=== PATIENT | female | born 1965 | race Caucasian/White ===

== ENCOUNTER → 2020-01-31 09:52 | Outpatient (CLI) | payer OTHER, SELFPAY ==
--- NOTE | ~2020-01-31 | MMUS_ITS ---
EXAMINATION: MM diagnostic lisa BI w phong, US breast RT complete HISTORY: Right axillary swelling, increased TECHNIQUE: ML, MLO and cc 3-D tomosynthesis images of both breasts were performed and synthetic 2-D i mages were generated. Bilateral rotated lateral craniocaudal views. CAD analysis was submitted and in terpreted. High resolution right breast and right axillary breast ultrasound was performed. COMPARISON: 09/28/2017 bilateral diagnostic digital mammography 09/28/2017 limited right breast ultrasound BREAST PARENCHYMAL COMPOSITION: There are scattered areas of fibroglandular density. FINDINGS: MAMMOGRAPHIC FINDINGS: There is asymmetric swelling in the right axillary area with a mix of underlying fibroglandular-like density and fat density. Otherwise no suspicious mass, architectural distortion, malignant calcification, skin thickening or r etraction of either breast is evident. ULTRASOUND: A benign-appearing lymph node of approximately 5 x 9 x 12 mm size is identified in the right axilla. No discrete soft tissue mass is evident otherwise. Upon correlation of the mammographic and sonographic findings, hamartoma containing a mixture of norm al fibroglandular breast tissue and fatty tissue is suspected. IMPRESSION: 1. 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 Given interval increase in size, the lesion may be biopsied and/or considered for surgical excisio n as clinically appropriate BI-RADS Category 2: Benign Reviewed, dictated and finalized at location A. IMPRESSION: 1. No mammographic evidence of malignancy; probable hamartoma of the right axil benjamin area 2. Given interval increase in size, the lesion may be biopsied and/or considere d for surgical excision as clinically appropriate BI-RADS Category 2: Benign
== END ==
PROVIDERS: PCP Internal Medicine; Visit Provider Clinical Nurse Specialist
DX: N63.0 Unspecified lump in unspecified breast (principal)
CPT/HCPCS: 76641; 77062; 77066; G0279

== ENCOUNTER → 2021-03-07 12:35 | Outpatient (CLI) | payer OTHER, SELFPAY ==
--- NOTE | ~2021-03-07 | XR_ITS ---
EXAMINATION: XR knee LT min 4V DATE: 03/07/2021 13:19 INDICATION: Left knee pain. TECHNIQUE: 4 views of left knee with weightbearing were obtained. COMPARISON: Left knee radiograph 12/12/2015 FINDINGS: Bone alignment is normal. No fracture. There is moderate osteoarthritis of lateral compartm ent and mild osteoarthritis of medial and patellofemoral compartments. No knee joint effusion. IMPRESSION: 1. Moderate left knee osteoarthritis. Reviewed, dictated and finalized at location A.
--- NOTE | ~2021-03-07 | MM_ITS ---
EXAMINATION: MM screening lisa BI w phong HISTORY: Screening mammogram TECHNIQUE: Craniocaudal and mediolateral oblique 3-D tomosynthesis images were obtained and synthetic 2-D images were generated. CAD analysis was submitted and interpreted. COMPARISON: 01/31/2020 bilateral diagnostic mammography and complete right breast ultrasound 12/01/2018 bilateral digital screening mammogram BREAST PARENCHYMAL COMPOSITION: FINDINGS: 5.9 mm circumscribed mass in the upper outer quadrant of left breast. Diagnostic left mammo gram is recommended, with ultrasound if required. There is a subtle cluster of linear microcalcifications in the posterior lower outer right breast (cr aniocaudal tomosynthesis images 13-/). Diagnostic right mammogram with magnification views is re commended. . IMPRESSION: 1. Subtle posterior lower outer linear right clustered fine linear microcalcifications; diagnostic ri ght mammogram with magnification views is recommended 2. 5 x 9 mm circumscribed mass in the upper outer left breast; diagnostic left mammogram is recommend ed, with ultrasound if required BI-RADS Category 0: Incomplete: Needs additional imaging evaluation. Reviewed, dictated and finalized at location A. IMPRESSION: 1. Subtle posterior lower outer linear right clustered fine linear microcalcifi cations; diagnostic right mammogram with magnification views is recommended 2. 5 x 9 mm circumscribed mass in the upper outer left breast; diagnostic left mammogram is recommended, with ultrasound if required BI-RADS Category 0: Incomplete: Needs additional imaging evaluation.
--- NOTE | ~2021-03-07 | XR_ITS ---
EXAMINATION: XR knee RT min 4V DATE: 03/07/2021 13:20 INDICATION: Right knee pain. TECHNIQUE: 4 views of right knee with weightbearing were obtained. COMPARISON: None. FINDINGS: Bone alignment is normal. No fracture. There is severe osteoarthritis of lateral compartmen t, mild osteoarthritis of medial compartment, and moderate osteoarthritis of patellofemoral compartme nt. There is a small knee joint effusion. IMPRESSION: 1. Severe right knee osteoarthritis. 2. Small right knee joint effusion. Reviewed, dictated and finalized at location A.
== END ==
PROVIDERS: PCP Internal Medicine; Visit Provider Clinical Nurse Specialist
DX: Z12.31 Encounter for screening mammogram for malignant neoplasm of breast (principal); R92.8 Other abnormal and inconclusive findings on diagnostic imaging of breast; M25.461 Effusion, right knee
CPT/HCPCS: 73564; 77063; 77067

== ENCOUNTER → 2021-03-12 07:42 | Outpatient (CLI) | payer OTHER, SELFPAY ==
--- NOTE | ~2021-03-12 | MMUS_ITS ---
EXAMINATION: MM diagnostic lisa BI w phong, US breast LT limited HISTORY: Follow-up right breast calcifications and left breast mass TECHNIQUE: Additional 3-D tomosynthesis images of the breasts were performed and synthetic 2-D images were generated. CAD analysis was submitted and interpreted. High resolution Limited left breast ultr asound was performed. COMPARISON: Comparison to multiple prior studies sequentially, with oldest reviewed study dated 12/06. BREAST PARENCHYMAL COMPOSITION: Breast composed of scattered areas of fibroglandular density. FINDINGS: MAMMOGRAPHIC FINDINGS: There are subtle calcifications lateral aspect of the left breast which are likely benign. There is a 6 mm mass in the upper outer quadrant of the left breast measuring 6 mm with layering milk of calciu m. ULTRASOUND: Limited left breast ultrasound: At 2:00, 8 cm from the nipple, there is a 7 x 5 x 7 mm oval hypoechoi c mass without significant posterior features or internal vascularity, likely complicated cysts. This corresponds to the mass identified on mammography. IMPRESSION: 1. Probable benign bilateral breast findings. 2. Recommend 6 month follow-up diagnostic bilateral mammogram and left breast ultrasound. BI-RADS category 3, probably benign findings. Reviewed, dictated and finalized at location A. IMPRESSION: 1. Probable benign bilateral breast findings. 2. Recommend 6 month follow-up diagnostic bilateral mammogram and left breast u ltrasound. BI-RADS category 3, probably benign findings.
== END ==
PROVIDERS: PCP Internal Medicine; Visit Provider Clinical Nurse Specialist
DX: N63.21 Unspecified lump in the left breast, upper outer quadrant (principal)
CPT/HCPCS: 76642; 77062; 77066; G0279

== ENCOUNTER 2021-11-25 20:54 | Emergency (ER) | payer OTHER, SELFPAY ==
--- NOTE | ~2021-11-25 | XR_ITS ---
EXAM: XR foot RT min 3V DATE: 11/25/2021 21:34 HISTORY: injury/pain . COMPARISON: None available. FINDINGS: Decreased mineralization. No fracture or dislocation. No lytic or blastic lesion. Joint sp aces are maintained. No erosion or periosteal change. Soft tissues within normal limits. IMPRESSION: No acute osseous finding in the right foot. Reviewed, dictated and finalized at location K.
[2021-11-25 21:12] VITALS: BP 152/68; PULSE 78; RESP 16; TEMP 36.9; O2SAT 100
--- NOTE | 2021-11-25 23:12 | ED.LOWEXIN ---
HPI - Extremity Injury (Lower) General Chief Complaint: Extremity Injury, Lower Stated Complaint: Right great toe injury tripped Time Seen by Provider: 11/25/21 22:40 History of Present Illness HPI Narrative: Patient is a 55-year-old female who presents ER with pain to her right great toe. She tripped on a rug and caught her toe. Has pain with roll stepping on the toe. No numbness or tingling. Bruising noted at the base of the cuticle. Related Data Allergies Allergy/AdvReac Type Severity Reaction Status Date / Time No Known Allergies Allergy Verified 11/25/21 21:15 Review of Systems Musculoskeletal: Musculoskeletal: Reports arthralgias and Reports joint swelling Integumentary/Breasts: Skin/Breast: Denies rash Comments: toe bruising Neurologic: Denies focal weakness and Reports numbness (transient, now resolved) [facility] Past Medical History Medical History (Updated 11/25/21 @ 23:17 by Bala Wiggins MD) Anxiety Depression Elevated BP without diagnosis of hypertension GERD (gastroesophageal reflux disease) Palpitations Family History Family History Mother Family history of osteoporosis Asthma Acute myocardial infarction Social History Social History Smoking status: Never smoker Alcohol intake: current Alcohol use details: rarely Exam Narrative: GENERAL: Well-appearing, well-nourished, and in no acute distress. HEAD: Normocephalic, atraumatic. HEART: Regular rate and rhythm. Normal peripheral pulses. EXTREMITIES: Focused exam of the right foot shows bruising at the cuticle. Tender palpation over the distal phalanx. Flexion extension intact. Sensation intact. Normal dorsalis pedis pulse. SKIN: Warm, dry, no rash. NEURO: Alert and oriented x3. PSYCH: Normal mood and affect. Course Course Emergency Course: Informed of diagnosis. Postop shoe for home. Vital Signs Vital signs: Vital Signs Temperature 98.4 F 11/25/21 21:12 Pulse Rate 78 11/25/21 21:12 Respiratory Rate 16 11/25/21 21:12 Blood Pressure 152/68 H 11/25/21 21:12 Pulse Oximetry 100 11/25/21 21:12 Temperature 98.4 F 11/25/21 21:12 Pulse Rate 78 11/25/21 21:12 Respiratory Rate 16 11/25/21 21:12 Blood Pressure 152/68 H 11/25/21 21:12 Pulse Oximetry 100 11/25/21 21:12 MDM - Extremity Injury (Lower) Imaging Data Radiologist's impression: ITS Impressions Foot X-Ray 11/25/21 21:39 IMPRESSION: No acute osseous finding in the right foot. ADDENDUM: 11/25/21 4521 On review, at the request of Dr. Wiggins, there is a nondisplaced oblique fracture of the proximal aspect of the right distal first phalanx. No definite intra-articular extension. No other fracture detected. Discharge Plan Discharge Clinical Impression: Fracture of great toe Patient Disposition: Home, Self-Care Condition: Stable Instructions: Toe Fracture (ED) Additional Instructions: Return the ER if you suffer new injury, your foot becomes cold/blue, or you have additional concerns. Follow-up with orthopedic surgery. Prescriptions: No Action esomeprazole magnesium [Nexium] 20 mg capsule,delayed release(DR/EC) 20 mg PO DAILY Qty: 90 3RF alprazolam [Xanax] 0.25 mg tablet 0.25 mg PO TID PRN (Reason: anxiety) Qty: 20 0RF atorvastatin 20 mg tablet 20 mg PO HS Qty: 90 3RF Follow-up/Referrals: Mao Rdz MD [Physician] - 1 Week Richie Fam DO [Primary Care Provider] - Stand Alone Forms: Work/School Release IP
[2021-11-25 23:53] VITALS: BP 149/79; PULSE 72; RESP 16; O2SAT 98
== END 2021-11-25 23:52 | disposition home or self-care (01) ==
PROVIDERS: Emergency Provider Emergency Medicine; PCP Internal Medicine
DX: S92.414A Nondisplaced fracture of proximal phalanx of right great toe, initial encounter for closed fracture (principal); F41.9 Anxiety disorder, unspecified; F32.9 Major depressive disorder, single episode, unspecified; W01.0XXA Fall on same level from slipping, tripping and stumbling without subsequent striking against object, initial encounter
CPT/HCPCS: 73630; 99284

== ENCOUNTER → 2022-07-28 09:19 | Outpatient (CLI) | payer OTHER, SELFPAY ==
--- NOTE | ~2022-07-28 | MM_ITS ---
EXAMINATION: MM screening lisa BI w phong HISTORY: Screening mammogram TECHNIQUE: Craniocaudal and mediolateral oblique 3-D tomosynthesis images were obtained and synthetic 2-D images were generated. CAD analysis was submitted and interpreted. COMPARISON: 03/12/2021 diagnostic bilateral mammogram and limited left breast ultrasound 03/07/2021 bilateral screening mammogram BREAST PARENCHYMAL COMPOSITION: There are scattered areas of fibroglandular density. FINDINGS: There are a few stable benign calcifications. There is no evidence of suspicious mass, calc ification, or architectural distortion to suggest malignancy in either breast. There has been no susp icious interval change. IMPRESSION: 1. No mammographic evidence of malignancy. 2. Recommend routine screening mammography in one year. BI-RADS Category 2: Benign finding(s). Reviewed, dictated and finalized at location A. L GRINDER
--- NOTE | ~2022-07-28 | DEXA_ITS ---
Bone Density Report Name: SOPHIA MCINTOSH Age: 56 Sex: Female Ethnicity: White Date of : 1965 Indication: postmenopausal; screening for osteoporosis; height loss; Referring Provider: Bonita Dixon Study: Bone densitometry was performed. Exam Date: July 28, 2022 Accession number: [id number] Bone Density: Region BMD T-score Z-score Classification AP Spine (L1-L4) 0.892 -1.4 -0.3 Osteopenia Femoral Neck (Left) 0.735 -1.0 0.1 Normal Total Hip (Left) 0.820 -1.0 -0.3 Normal Femoral Neck (Right) 0.765 -0.8 0.3 Normal Total Hip (Right) 0.773 -1.4 -0.7 Osteopenia Total Hip Mean 0.797 -1.2 -0.5 Osteopenia World Health Organization criteria for BMD impression classify patients as: Normal (T-score at or above -1.0), Osteopenia (T-score between -1.0 and -2.5), or Osteoporosis (T-score at or below -2.5). 10-year Fracture Risk(1): Major Osteoporotic Fracture 5.6% Hip Fracture 0.3% Reported Risk Factors: [place] (), Neck BMD=0.735, BMI=31.4 (1) FRAX(R) Version 3.08. Fracture probability calculated for an untreated patient. Fracture probability may be lower if the patient has received treatment. Clinical Information Provided by Patient: Has used the following medications: Vitamin D, Calcium Patient maximum height was 63 Menopause Age: 51 Does not regularly consume dairy products Onset of menses at age 16 Number of children 2 Impression: The patient has low bone mass, based on the Total Spine T-score. The patient has an estimated ten-year risk of hip fracture of 0.3% and an estimated ten-year risk of major fracture of 5.6%, based on the WHO FRAX algorithm. Discussion: BONE DENSITY IS LOW AT ONE OR MORE SKELETAL SITES. This patient's lowest T-score is low at one or more skeletal sites. It meets the World Health Organization's (WHO) criteria for ?low bone mass? (T-score between -1.0 and -2.5). The patient's 10-year risk of fracture as calculated by FRAX is less than the threshold where pharmacological therapy is recommended by the National Osteoporosis Foundation (NOF). However, all treatment decisions require clinical judgment and consideration of individual patient factors, including patient preferences, comorbidities, previous drug use, risk factors not captured in the FRAX model (e.g., frailty, falls, vitamin D deficiency, increased bone turnover, interval significant decline in bone density) and possible under or overestimation of fracture risk by FRAX. The patient should follow a healthful lifestyle (good nutrition with adequate calcium and vitamin D, and appropriate weight-bearing exercise). Follow-Up: Consider repeating this study in 2 to 3 years to reassess this patient's status, or sooner if there is some new clinical indication. Reported by: TARIK on 07/28/2022 9:47:00 AM.
== END ==
PROVIDERS: PCP Internal Medicine; Visit Provider Clinical Nurse Specialist
DX: Z12.31 Encounter for screening mammogram for malignant neoplasm of breast (principal); Z78.0 Asymptomatic menopausal state; M85.89 Other specified disorders of bone density and structure, multiple sites
CPT/HCPCS: 77063; 77067; 77080

== ENCOUNTER 2024-03-02 01:31 | Day surgery (SDC) | payer OTHER, SELFPAY ==
[2024-02-04 11:34] VITALS: BMI 25.2
--- NOTE | 2024-02-04 11:42 | PC.NURSE ---
Report to the Outpatient Waiting Room, entrance under the green pavilion located off [facility], at time _130pm_ on date _[phone]_. Planned Procedure Time: _330pm_.? Time changes happen often and if your time is changed the preop area will call you the afternoon before. - You and your visitor will be asked to self-screen and do not enter if you have any COVID symptoms. Please call surgeon if you need to reschedule. - A mask is optional within the hospital at this time. Patients may have clear liquids (water, carbonated beverages, clear teas, apple juice) until 3 hours prior to surgery with a maximum of 20 ounces. - No food from midnight until time of surgery and no smoking Take only the following medications with a SIP of water on the morning of surgery: ___None DO NOT STOP ANY OF YOUR OTHER PRESCRIPTION MEDICATIONS PRIOR TO SURGERY EXCEPT THE FOLLOWING Medications to discontinue per physician ___Patient stopped Wegovy on [phone] Please no make-up, nail kenyan, hairspray, perfume, deodorant, or body powder the day of surgery.? No jewelry (including any body piercings) or valuables the day of surgery, leave them at home.? Please take a shower or bath the night before, or the morning of, surgery with an antibacterial soap.? Wear comfortable, loose fitting clothing.? - Jewelry must be removed prior to entering the operating room.? Rings and piercings that are not removed may be cut off. - The hospital will not accept responsibility for valuables.? - Please leave all valuables, including medications, at home the day of surgery. If you are going home after surgery, a licensed industrial truck driver must drive you home.? - NO public transportation without another adult if you receive anesthesia. - We recommend that an adult stay with you for 24 hours following discharge. - We also recommend that you do not drive, make important decision, drink alcoholic beverages, or take any drugs that were not prescribed by your health care provider for at least 24 hours after your discharge time. Follow any additional instructions given to you from your surgeon. Telephone instructions given to __Neeru___and asked if any additional questions and then verbalized understanding. Patient advised to call surgeon office or pre surgery nurse liaison [phone] if any additional questions.
--- NOTE | 2024-02-24 14:31 | PC.NURSE ---
Report to the Outpatient Waiting Room, entrance under the green pavilion located off [facility], at time _0830_ on date _[phone]_. Planned Procedure Time: _1030_.? Time changes happen often and if your time is changed the preop area will call you the afternoon before. - You and your visitor will be asked to self-screen and do not enter if you have any COVID symptoms. Please call surgeon if you need to reschedule. - A mask is optional within the hospital at this time. Patients may have clear liquids (water, carbonated beverages, clear teas, apple juice) until 3 hours prior to surgery with a maximum of 20 ounces. - No food from midnight until time of surgery and no smoking Take only the following medications with a SIP of water on the morning of surgery: ___None DO NOT STOP ANY OF YOUR OTHER PRESCRIPTION MEDICATIONS PRIOR TO SURGERY EXCEPT THE FOLLOWING Medications to discontinue per physician ____Took last dose of Wegovy 02-18-2024. Plans to not take dose again till after surgery.____ Please no make-up, nail austrian, hairspray, perfume, deodorant, or body powder the day of surgery.? No jewelry (including any body piercings) or valuables the day of surgery, leave them at home.? Please take a shower or bath the night before, or the morning of, surgery with an antibacterial soap.? Wear comfortable, loose fitting clothing.? - Jewelry must be removed prior to entering the operating room.? Rings and piercings that are not removed may be cut off. - The hospital will not accept responsibility for valuables.? - Please leave all valuables, including medications, at home the day of surgery. If you are going home after surgery, a licensed fast food delivery driver must drive you home.? - NO public transportation without another adult if you receive anesthesia. - We recommend that an adult stay with you for 24 hours following discharge. - We also recommend that you do not drive, make important decision, drink alcoholic beverages, or take any drugs that were not prescribed by your health care provider for at least 24 hours after your discharge time. Follow any additional instructions given to you from your surgeon. Telephone instructions given to __Cynthia__and asked if any additional questions and then verbalized understanding. Patient advised to call surgeon office or pre surgery nurse liaison [phone] if any additional questions.
--- NOTE | 2024-03-02 08:47 | P.PNAN_ITS ---
Anes - Initial Pre Proc Eval Procedure: Operation Date: 03/02/24 10:30 Proposed Procedures p Hysteroscopy with Biopsy of Endometrium and/or Polypectomy - Az Field MD Date/Time: 03/02/24 08:47 Surgeon: Az Field MD Pre Op Diagnosis: polyp of cervix Patient Data Age: 58 Gender: F Height: 1.6 m Weight: 64.5 kg Allergies Allergy/AdvReac Type Severity Reaction Status Date / Time No Known Allergies Allergy Verified 03/02/24 10:03 Home Medications Medication Instructions Recorded Confirmed Type conj estrogen-medroxyprogesterone See Rx Instructions .Route DAILY 12/19/22 03/02/24 Rx 0.625 mg-5 mg tablet (Prempro) #8 patches semaglutide (weight loss) 0.25 0.25 mg (0.5 mL) subcut WEEKLY #2 12/29/22 03/02/24 Rx mg/0.5 mL subcutaneous pen mL injector (Wegovy) esomeprazole magnesium 20 mg 20 mg PO DAILY #90 caps 11/13/23 03/02/24 Rx capsule,delayed release (Nexium) atorvastatin 20 mg tablet 20 mg PO HS #90 tabs 02/22/24 03/02/24 Rx Patient hx anesthesia problems: none Family hx anesthesia problems: none Results Review: All pre-operative results and documents have been reviewed as part of the pre- operative evaluation. [facility] Past Medical History Medical History Anxiety Depression Elevated BP without diagnosis of hypertension GERD (gastroesophageal reflux disease) Palpitations Surgical History Surgical History History of breast lift Hx of breast reduction, elective Family History Family History Mother Family history of osteoporosis Asthma Acute myocardial infarction Social History Social History Smoking status: Never smoker Alcohol intake: current Alcohol use details: rarely Do You Feel Safe in your Home?: Yes Lack of Transportation: No Lack of Food: Never True Current Housing: I Have Housing Concerned About Future Housing: No Difficulty Paying Gas/Electric Bills: No Difficulty Paying for Meds: No Currently Unemployed: No Education: Bachelor's Degree Difficulty w/ Childcare or Family Care: No Living arrangements: with family Spiritual care concerns: No Anes - Eval Final PreProcedure Day of Procedure 03/02/24 08:47 Patient weight: normal Heart: regular rate and rhythm Lungs: clear to auscultation Airway: Mallampati scale class II Neurological: alert and oriented Last oral intake: >/= 8 hours ASA classification: II Emergent: no Anesthetic plan: proceed Anesthesia type and monitoring: general and standard monitoring Other findings: Patient held semaglutide for 2 weeks Results Review: All pre-operative results and documents have been reviewed as part of the pre- operative evaluation. Informed Consent: The patient's anesthetic plan and its attendant risks and benefits were discussed with the patient/family/POA. Questions were solicited and answers provided to the satisfaction of the patient/family/POA.
[2024-03-02] MEDS: ACETAMINOPHEN 500 MG TABLET 1000 MG PO (08:55)
[2024-03-02] MEDS: LACTATED RINGERS 1,000 ML 30 ML IV CONT (09:00)
--- NOTE | 2024-03-02 09:59 | PM.IMHP ---
H&P: HPI History of Present Illness Date/Time: 03/02/24 09:59 Chief Complaint: endometrial polyp Narrative: this patient is a 58-year-old female with endometrial polyp. We agreed to perform hysteroscopy with endometrial biopsy and possible polypectomy. The patient understands the details of the procedure. The procedure has been explained in detail. She understands the risks. She understands that injuries may occur that result in hospitalization, more surgery, and severe illness. She understands risk of hemorrhage and infection. She denies any chest pain or shortness of breath. She denies any nausea, vomiting, fever, chills. Review of Systems Review of Systems: All systems reviewed & are unremarkable except as noted in HPI and below Constitutional: Constitutional: Denies chills, Denies fatigue, Denies fever(s) and Denies weakness Eyes: Eyes: Denies blurry vision, Denies change in vision, Denies loss of peripheral vision, Denies loss of vision, Denies other visual disturbances and Denies eye pain ENT: Denies vertigo, Denies dizziness, Denies hearing loss, Denies mouth pain, Denies nasal obstruction, Denies neck mass and Denies neck pain Cardiovascular: Cardiovascular: Denies chest pain, Denies diaphoresis, Denies syncope, Denies leg edema and Denies dyspnea Respiratory: Respiratory: Denies chest congestion, Denies cough, Denies hemoptysis, Denies dyspnea and Denies wheezing Gastrointestinal: Gastrointestinal: Denies abdominal pain, Denies constipation, Denies diarrhea, Denies nausea and Denies vomiting Genitourinary: Genitourinary: Denies hematuria, Denies change in libido, Denies nocturia, Denies genital lesions, Denies flank pain and Denies urinary urgency Musculoskeletal: Musculoskeletal: Denies abnormal gait, Denies back pain, Denies myalgias, Denies arthralgias, Denies joint swelling, Denies muscle weakness and Denies neck pain Integumentary/Breasts: Skin/Breast: Denies swelling, Denies breast pain, Denies breast mass, Denies dry skin, Denies nipple discharge, Denies unusual bruising and Denies jaundice Neurologic: Denies Neuro-related abnormal movements, Denies Abnormal speech present, Denies abnormal gait, Denies behavioral changes, Denies confusion, Denies vertigo, Denies dizziness, Denies syncope, Denies loss of vision, Denies memory loss, Denies convulsions and Denies weakness Psychiatric: Psychiatric: Denies abnormal sleep pattern, Denies behavioral changes, Denies change in libido, Denies confusion, Denies depression, Denies anhedonia and Denies memory loss Endocrine: Endocrine: Reports no additional endocrine complaints, Denies change in libido and Denies fatigue Hematologic/Lymphatic: Hematologic/Lymphatic: Reports no additional hematologic/lymphatic complaints Allergic/Immunologic: Allergic/Immunologic: Reports no additional allergic/immunologic complaints and Denies wheezing PMF Past Medical History Medical History Anxiety Depression Elevated BP without diagnosis of hypertension GERD (gastroesophageal reflux disease) Palpitations Surgical History Surgical History History of breast lift Hx of breast reduction, elective Family History Family History Mother Family history of osteoporosis Asthma Acute myocardial infarction Social History Social History Smoking status: Never smoker Alcohol intake: current Alcohol use details: rarely Do You Feel Safe in your Home?: Yes Lack of Transportation: No Lack of Food: Never True Current Housing: I Have Housing Concerned About Future Housing: No Difficulty Paying Gas/Electric Bills: No Difficulty Paying for Meds: No Currently Unemployed: No Education: Bachelor's Degree Difficulty w/ Childcare
--- NOTE | 2024-03-02 10:12 | WPDHPUPDATE1 ---
History and Physical Update Update Date/Time: 03/02/24 10:12 History and Physical has been reviewed, including an updated exam of the patient. There are NO changes in the patient's condition. Risks, benefits, and alternatives have been discussed and questions answered. Patient agrees to proceed with procedure.
[2024-03-02 10:15] VITALS: BP 129/88; BP 136/63; PULSE 65; PULSE 67; RESP 18; TEMP 36.3; O2SAT 98
[2024-03-02 10:45] VITALS: BP 104/48; PULSE 62; RESP 12; O2SAT 96
--- NOTE | 2024-03-02 10:54 | P.OP_ITS ---
Procedure Note - Detailed Date of Procedure 03/02/24 Pre-op Diagnosis polyp of cervix Post-op Diagnosis Same Procedure Performed Hysteroscopy D&C, with polypectomy Surgeon Az Field MD Anesthesia MAC Indications abnormal uterine bleeding Findings Endometrial polyp at the fundus of the uterus. It was midline. The vulva, vagina, cervix all appear normal. Description of Procedure the patient was taken the operating room. She was prepped and draped in the dorsal lithotomy position after induction of mac anesthesia. A speculum was placed in the vagina. The cervix was grasped with a tenaculum. The cervix was dilated about 1 cm. The hysteroscope was inserted. The intrauterine cavity and endocervix were evaluated. rotational blade was inserted through the hysteroscope and the polyp was resected. Hysteroscope was withdrawn. A medium- size curette was used to curettage all the surfaces were within the endometrial cavity. the sample was collected on Telfa and sent to pathology. The hyst eroscope was reinserted and the above findings were noted. Patient tolerated the procedure well. The speculum and tenaculum were removed. She was taken recovery room in stable condition. Sponge lap and needle counts were correct x2. Estimated Blood Loss 40 Drains No Packing No Pathology Yes Complications No immediate complications Condition Stable Disposition PACU
[2024-03-02 11:15] VITALS: BP 129/88; PULSE 67
[2024-03-02] MEDS: oxyCODONE HCL (*CRX) 5 MG TAB IR PO (11:41)
[2024-03-02 11:45] VITALS: BP 130/59; PULSE 56
== END 2024-03-02 11:55 | disposition home or self-care (01) ==
PROVIDERS: PCP Internal Medicine; Visit Provider Obstetrics & Gynecology
PROC: 0U5B8ZZ Destruction of Endometrium, Via Natural or Artificial Opening Endoscopic (ICD-10-PCS; CPT 58563; principal; 2024-03-02 10:30)
DX: N84.0 Polyp of corpus uteri (principal); F41.9 Anxiety disorder, unspecified; F32.A Depression, unspecified; K21.9 Gastro-esophageal reflux disease without esophagitis; R03.0 Elevated blood-pressure reading, without diagnosis of hypertension; Z79.85 Long-term (current) use of injectable non-insulin antidiabetic drugs; Z98.890 Other specified postprocedural states; Z82.49 Family history of ischemic heart disease and other diseases of the circulatory system
CPT/HCPCS: 58558; 88305; A9270; J1100; J1885; J2250; J2405; J2704; J3010; J7120

== ENCOUNTER 2025-02-04 12:16 | Emergency (ER) | payer OTHER, SELFPAY ==
[2025-02-04] VITALS (11 sets, daily range): BP systolic 107–156; BP diastolic 56–129; PULSE 72–110; RESP 20–36; TEMP 36.4; O2SAT 97–100
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
--- OUTSIDE RECORDS SUMMARY | 2025-02-04 12:41 | XMS_ITS | Continuity of Care Document ---
Author Name [facility] Organization [facility] Care Team Providers Care Telephone Answering Service Operator Name Role Phone [facility] Unavailable Unavailable Problems Combined list of problems from Department of Defense and Veterans Affairs facilities. It does not include entries that were removed or entered in error. Problem Status Onset Date Problem Type Date of Resolution Comments Source visit for: issue repeat prescription Active Condition DoD CLASSIC MIGRAINE (WITH AURA) Active Condition DoD BACTERIAL VAGINOSIS Inactive Condition DoD TENDONITIS PATELLAR Active Condition [facility] URETERAL STONE Active Condition strai n all urineforce fluids DoD visit for: administrative purpose Inactive Condition discussed labs are clear, call back if no improvment in sx. [facility] PYELONEPHRITIS ACUTE BACTERIAL RIGHT Active Condition UA in clinic ne g except for blood (patient is menstrating), but she has all the clinical signs and symptoms. She has been treated in the past with sulfa drugs. Will use flouroquinolone this time and pyridium for symptoms. [facility] DEPRESSION Active Condition DoD SINUSITIS ACUTE Inactive Condition Susp ect sinus infection with allergic rhinitis as the cause of her LOPEZ as well as her generalized aches and fatigue. Will place the pt on a two week course of augmentin (paper script given) as well as start samreen-d (paper script given). Advised the pt [facility] urinary frequency ___ times during the night Active Condition suspect Interstitial Cystitis. Rechecking UA and U cx. Checking GC/chlamydia. No baths. If no improvement and negative tests, will refer to Urology for cystoscopy. [facility] UPPER RESPIRATORY INFECTION Inactive Condition Patient with likely viral URI. Will give paper Rx's for symptomatic relief to include Entex PSE, tessalon pearles, and T#3. Advised patient on proper uses of medications and to avoid driving with T3's. [facility] CHRONIC MAJOR DEPRESSION Active Condition DoD Diagnosis: ICD-10-CM Z02.89 Encounter for other administrative examinations Active Diagnosis [facility] Diagnosis: ICD-10-CM Z23 Encounter for immunization Active Diagnosis [facility] Diagnosis: ICD-10-CM Z77.29 Contact with and exposure to other hazardous substances Active Diagnosis [facility] Medications Combined list of outpatient medications from Department of Defense and Veterans Affairs facilities.Medications provided include 1) outpatient medications from the last 15 months, and 2) patient-reported medications. Medication Details Route Status Patient Instructions Prescription Expires Prescription Number Last Dispense Date Ordering Provider Order Date Order Qty Source COMBIPATCH (ESTRADIOL/ NORETHINDRO NE ACET), .05-.14, PATCH TDSW, TRANSDERM, NOVEN THERAPEUT, 8 ea. BOX Active [id number] 4 2023 24 Pharmac y Data Transac tion Service Facilit y COMBIPATCH (ESTRADIOL/ NORETHINDRO NE ACET), .05-., PATCH TDSW, TRANSDERM, NOVEN THERAPEUT, 8 ea. BOX Active [id number] 4 2023 24 Pharmac y Data Transac tion Service Facilit y COMBIPATCH (ESTRADIOL/ NORETHINDRO NE ACET), .05-., PATCH TDSW, TRANSDERM, NOVEN THERAPEUT, 8 ea. BOX Cancele d [id number] : 2023 0 Pharmac y Data Transac tion Service Facilit y ESOMEPRAZOL E MAGNESIUM (esomeprazo le magnesium), 20 MG, CAPSULE JESI BERNABE, [facility], 30 ea. BOTTLE Active [id number] 4 2023 90 Pharmac y Data Transac tion Service Facilit y Allergies, Adverse Reactions, Alerts Combined list of allergies from Department of Defense and Veterans Affairs facilities. It does not include entries that were removed or entered in error. Substance Category Reaction Severity Reaction type Status Date Reported Comments Source No Known Allergies Drug allergy (disorder) active 10/07/2007 [facility] Melo BAEZA ([facility]) Immunizations Combined list of available immunizations from the Department of Defense and Veterans Affairs facilities. Immunization Series Date Given Administered By Site Reaction Lot Number CVX Code Drug Camp Counselor Status Comments Source INFLUENZA, SPLIT VIRUS, TRIVALENT, PF 2023 KAYLA KLEIN LEFT DELTO ID [id number] 140 complet ed [facility] INFLUENZA, INJECTABLE, QUADRIVALENT, PRESERVATIVE FREE 2022 RICHARD TEIXEIRA RIGHT DELTO ID [id number] 150 complet ed Completed Series, [facility] INFLUENZA, INJECTABLE, QUADRIVALENT, PRESERVATIVE FREE 2021 150 complet ed [facility]FLU[facility]ZA, INJECTABLE, QUADRIVALENT, PRESERVATIVE FREE 2020 150 complet ed [facility] INFLUENZA, INJECTABLE, QUADRIVALENT, PRESERVATIVE FREE 2019 150 complet ed [facility] INFLUENZA, INJECTABLE, QUADRIVALENT, PRESERVATIVE FREE 2018 150 complet ed [facility] INFLUENZA, INJECTABLE, QUADRIVALENT, PRESERVATIVE FREE 2018 150 complet ed [facility] influenza virus vaccine, whole virus 1 2002 Unknown, Provider [id number] [employer] complet ed influenza virus vaccine, whole virus DoD Encounters Combined list of: 1) Encounters from Department of Veterans Affairs facilities going backup to the last 18 months, not all [place] inpatient encounters are included; 2) Encounters from the Department of Defense facilities going backup to 280 months. Location Location Details Encounter Type Encounter Number Reason For Visit Attending Provider ADM Date DC Date Status Disposition Source [address] [place] [address] Melo BAEZA [facility]) TELE CONSULT [id number] med refGOPAL Ruvalcaba 01/[address] [place] [address] Melo [facility]AE[facility] [address] [place] [address] Melo [facility]AE[facility] OUTPATIENT [id number] cold>1 week FRANCY MATA 02/27 Released w/o Limitations [address] [place] [address] Melo BAEZA [facility] [address] [place] [address] Melo BAEZA [facility] OUTPATIENT [id number] bladder problem --went to urgent care and it is not uti ADRIANNE MILLER 09/26 Released w/o Limitations [address] [place] [address] Melo BAEZA [facility] Tm Blue) [address] [place] [address] Melo BAEZA ([facility])(Sco tt [facility] Tm Blue) OUTPATIENT [id number] FLU LIKE SYMTOMS RACHEAL NEEL Conner 03/24 Released w/o Limitations [address] [place] [address] Melo BAEZA ([facility])(S [facility] FAM[facility] Tm Blue) [address] [place] [address] Melo BAEZA ([facility])(Sco tt [facility] Tm Blue) OUTPATIENT [id number] BACK PAIN R/O KIDNEY INF [id number] ANTWON BROWN 10/20 Released w/o Limitations [address] [place] [address] Melo BAEZA ([facility])(S [facility] FAMRES Tm Blue) [address] [place] [address] Melo BAEZA ([facility])(Sco tt [facility] Fam Res Tm Green) TELE CONSULT [id number] lab ANTWON BROWN 10/[address] [place] [address] Melo BAEZA ([facility])(S [facility] Fam Res Tm Green) [facility]( Family Medicine 0333) OUTPATIENT [id number] uti IRENE PERSON 12/07 Released w/o Limitations [facility]( [facility] Family Medicin e 0333) [facility]( [facility] 0333) OUTPATIENT [id number] left knee pain TOMMY ZAMORA 04/16 Released w/o Limitations [facility]( [facility] Family Medicin e 0333) [facility]( [facility] 0333) OUTPATIENT [id number] med refill TOMMY ZAMORA 06/14 Released w/o Limitations [facility]( [facility] Family Medicin e 0333) [facility]( Family [facility] 0333) OUTPATIENT [id number] poss cyst on labia/d ischarg e IRENE PEROSN 10/04 Released w/o Limitations [facility]( [facility] Family Medicin e 0333) [facility]( Family Medicine 0333) OUTPATIENT [id number] h/a TOMMY ZAMORA 01/27 Released w/o Limitations [facility]( [facility] Family Medicin e 0333) [facility]( Family Medicine 0333) TELE CONSULT [id number] TOMMY Lorenz 09/06 [facility]( [facility] Family Medicin e 0333) [facility] OFFICE O/P EST LOW 20 MIN [id number] Diagnos is: ICD-10- CM Z77.29 Contact with and exposur e to other hazardo us substan niecy SHEEBA BARRAZA T 01/27 [facility] IMMUNIZATI ON ADMIN [id number] Diagnos is: ICD-10- CM Z23 Encount er for immuniz reshma KLEINKAYLA Hernandez 03/14 [facility] SPECIAL REPORTS OR FORMS 77636-1.82 [id number] Diagnos is: ICD-10- CM Z02.89 Encount er for other adminis trative examCLAUDETTE Fox 09/29 [facility] Procedures Combined list of: 1) Procedures from Department of Veterans Affairs facilities going back up to thelast 18 months, not all VA non-surgical procedures are included; 2) All procedures from the Department of Defense facilities. Procedure Procedure Type Code Date Perfomer Comments Anthony goldstein Urinalysis By Dip Stick With Microscopy Urinalysis By Dip Stick With Microscopy [id number] 10/20/2006 ANTWON BROWN DoD Social History Combined list of available smoking, tobacco, and other social history from Department of Defense and Veterans Affairs facilities. Social History Type Response Date Comment Anthony goldstein This section is an empty social history section. DoD
--- OUTSIDE RECORDS SUMMARY | 2025-02-04 12:42 | XMS_ITS | Clinical Summary ---
Author Organization [facility] [address] [facility] Address [address] [place] [address] Care Team Providers Care Glue Reel Operator Name Role Phone Richie Fam DO Primary Care Provider [phone] Allergies No known active allergies Medications sertraline (ZOLOFT) 50 mg tablet Take 0.5 tablets by mouth daily. 8 Active mv,Ca,min-FA-h erbal comp #223 400 mcg tablet Take 1 tablet by mouth daily. Active PREMPRO 0.625-5 mg per tablet 9 Active atorvastatin (LIPITOR) 20 mg tabletIndicati ons:Hyperlipid emia LDL goal <130 TAKE 1 TABLET DAILY 90 tablet [address] (NexIUM) 20 mg capsule Take by mouth daily 0 Active omeprazole (PriLOSEC) 40 mg capsule omeprazole 40 mg capsule,delayed release Active triamcinolone (KENALOG) 0.1 % cream triamcinolone acetonide 0.1 % topical cream Active Active Problems Problem Noted Date Diagnosed Date Nonrheumatic aortic valve stenosis 06/10/2018 Abnormal stress test 04/29/2018 Palpitations 04/29/2018 SOB (shortness of breath) 04/29/2018 Chest heaviness 04/29/2018 Hyperlipidemia LDL goal <130 04/29/2018 Anxiety 04/29/2018 Systolic murmur 04/29/2018 Medical History Medical History Date Comments Osteoarthritis History of stomach ulcers Gastric reflux Family History Medical History Relation Name Comments Lung cancer Father Lung cancer Maternal Grandfather Colon cancer Mother's Sister Colon cancer Paternal Grandfather Breast cancer Paternal Grandmother Alcohol abuse Neg Hx Arthritis Neg Hx Lung disease Neg Hx Relation Name Status Comments Father (Age 81) Maternal Grandfather Mother Alive Mother's Sister Paternal Grandfather Paternal Grandmother Sister Alive Social History Tobacco Use Types Packs/Day Years Used Date Smoking Tobacco: Never Smokeless Tobacco: Never Alcohol Use Standard Drinks/Week Comments Yes 2 (1 standard drink = 0.6 oz pur e alcohol) monthly Personal Safety Answer Date Recorded Getting School Help Needed Not on file 08/29 Comments Unknown Sex and Gender Information Value Date Recorded Sex Assigned at Not on file Legal Sex Female 12:45 PM CDT Gender Identity Not on file Sexual Orientation Not on file Obstetrics History Last Filed Vital Signs Vital Sign Reading Time Taken Comments Blood Pressure 118/68 02/17/2019 9:47 AM CDT Pulse 74 02/17/2019 9:47 AM CDT Temperature 36.7 C (98.1 F) 07/21/2014 10:57 AM SLAB WORKER Respiratory Rate - - Oxygen Saturation 96% 02/17/2019 9:47 AM CDT Inhaled Oxygen Concentration - - Weight 78.5 kg (173 lb) 04/19/2020 1:11 PM SLAB WORKER Height 160 cm (5' 3) 04/19/2020 1:11 PM SLAB WORKER Body Mass Index 30.65 04/19/2020 1:11 PM SLAB WORKER Plan of Treatment Not on file Insurance [facility] CLAIMS [employer] CLAIM[employer] Care Teams Glue Reel Operator Relationship Specialty Start Date End Date Richie Fam DO PCP - General Internal Medicine 04/07/17
[2025-02-04] MEDS: SODIUM CHLORIDE 0.9% IV 1,000 ML 999 ML IV CONT (13:13)
[2025-02-04] MEDS: HYDROmorphone HCL INJ (*CRX) 1 MG/ML SYR 0.5 MG IV PUSH ×2 (13:14→13:56)
[2025-02-04] MEDS: ONDANSETRON INJ 4 MG/2 ML VIAL IV PUSH ×2 (13:14→14:19)
--- NOTE | 2025-02-04 13:18 | PC.NURSE ---
Pt to CT at this hour.
[2025-02-04 13:19] LABS: Hematocrit 36.8 % (37.0-47.0); Hemoglobin 12.2 g/dL (12.0-15.0); Immature Granulocyte Percent A 0.7 % (0-0.5); Lymphocytes Absolute Auto 1.31 K/mm3 (0.9-3.2); Mean Corpuscular HGB Conc 33.2 g/dl (32-36); Mean Corpuscular Hemoglobin 30.9 pg (26-34); Mean Corpuscular Volume 93.2 fl (80-100); Nucleated Red Blood Cells Absolute Auto 0.000 K/mm3 (0.0-0.012); Nucleated Red Blood Cells Perc 0.0 % (0.0-0.2); Platelet Count Result 395 k/mm3 (150-375); Red Blood Count 3.95 M/mm3 (4.2-5.4); White Blood Count 10.0 K/mm3 (4.5-10.0)
[2025-02-04 13:29] LABS: Alanine Aminotransferase 26 U/L (6-35); Albumin Level 4.3 g/dL (3.5-5.1); Alkaline Phosphatase 70 U/L (38-126); Anion Gap 10 mmol/L (4-12); Aspartate Amino Transferase 39 U/L (14-36); Bilirubin,Total 1.6 mg/dL (0.2-1.3); Blood Urea Nitrogen 19 mg/dL (7-17); Calcium 9.5 mg/dL (8.4-10.2); Carbon Dioxide 25 mmol/L (22-30); Chloride 100 mmol/L (98-107); Estimated CRCL calculation 62 ml/min; Estimated Glomerular Filt Rate > 60; Glucose 159 mg/dL (65-110); Lipase 106 U/L (23-300); Potassium 3.5 mmol/L (3.4-5.0); Sodium 135 mmol/L (137-145); Total Protein 7.1 g/dL (6.3-8.2)
[2025-02-04 13:31] LABS: INR 1.0; Partial Thromboplastin Time 26.5 Seconds (22.3-36.8); Prothrombin Time 12.7 Seconds (11.1-14.7)
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
[2025-02-04] MEDS: PIPERACILLIN/TAZOBACTAM SOD 3.375 GM in SODIUM CHLORIDE 0.9% IV 50 ML 100 ML IVPB (14:01)
[2025-02-04] MEDS: HYDROmorphone HCL INJ (*CRX) 1 MG/ML SYR (14:18)
[2025-02-06 01:18] LABS: Estimated CRCL calculation 59 ml/min; Estimated Glomerular Filt Rate > 60
== END 2025-02-04 14:52 | disposition short-term general hospital (02) ==
PROVIDERS: Emergency Provider Emergency Medicine; PCP Internal Medicine
DX: S36.439A Laceration of unspecified part of small intestine, initial encounter (principal); S36.899A Unspecified injury of other intra-abdominal organs, initial encounter; K21.9 Gastro-esophageal reflux disease without esophagitis; F41.9 Anxiety disorder, unspecified; F32.A Depression, unspecified; V49.9XXA Car occupant (driver) (passenger) injured in unspecified traffic accident, initial encounter
CPT/HCPCS: 36415; 71260; 74177; 80053; 83690; 85025; 85610; 85730; 96361; 96365; 96375; 96376; 99285; J1171; J2405; J2543; J7030; Q9967

== ENCOUNTER 2025-03-09 15:46 | Outpatient (CLI) | payer OTHER, SELFPAY ==
--- NOTE | ~2025-03-09 | CT_ITS ---
EXAMINATION: CT brain wo greg, 03/09/2025 16:20 CDT HISTORY: R42 - Dizziness and giddiness COMPARISON: No comparisons available. Technique: Axial images obtained of the brain without contrast. One or more of the following dose reduction techniques were used: automated exposure control, adjustment of the mA and/or kV according to patient size, use of iterative reconstruction technique. Findings: No acute infarct or parenchymal hemorrhage. No abnormal mass or mass effect. No midline shift. No extra-axial fluid collections. No hydrocephalus. Mastoid air cells unremarkable. Sinuses and orbits unremarkable. No acute fracture. No significant facial or scalp soft tissue swelling evident. No radiopaque foreign body is seen. Impression: 1.No acute intracranial abnormality. Reviewed, dictated and finalized at location P. Impression: 1.No acute intracranial abnormality.
--- NOTE | ~2025-03-09 | CT_ITS ---
Neeru Rizo EXAMINATION: CT abdomen pelvis w con COMPARISON: None HISTORY: R10.9 - Unspecified abdominal pain TECHNIQUE: Axial images were obtained through the abdomen, pelvis post administration of IV contrast. Oral contrast was also administered. Coronal reconstruction images were obtained from the axial views. CT scan performed using dose optimization techniques including the following automated exposure control; adjustment of mA and/or kV; use of iterative reconstruction technique. Automatic exposure control was used to reduce radiation dose. Permanent radiation dose record is archived to PACS. FINDINGS: CT abdomen: LUNG BASES: The lung bases are clear. The visualized portions of the heart and pericardium are unremarkable. LIVER: Mild hepatic steatosis. The portal vein is patent. No intrahepatic biliary duct dilatation. SPLEEN: The spleen is not clearly identified.. KIDNEYS: Right Kidney: Right kidney 2 mm renal calculi, no hydronephrosis, midpole simple cyst 1 x 1 cm. Left Kidney: Left kidney renal calculi the largest mid pole 3 x 4 mm, no hydronephrosis, superior pole simple cyst 2 x 2 cm. ADRENAL GLANDS: Unremarkable. PANCREAS: Unremarkable. GALLBLADDER/BILIARY: Nonspecific mild hyperemia of the gallbladder mucosa. STOMACH AND ESOPHAGUS: Visualized stomach and esophagus within normal limits. BOWEL/MESENTERY: Moderate fecal content. No colitis or diverticulitis. Appendix not identified. No stranding within the mesentery. No thickening or dilated loops of small bowel. ADENOPATHY/RETROPERITONEUM: No lymphadenopathy. AORTA/VASCULATURE: Normal caliber aorta. FREE FLUID OR FREE AIR: No free fluid.. CT pelvis: SOLID ORGANS/REPRODUCTIVE: Unremarkable. BLADDER: Within normal limits. OSSEOUS STRUCTURES: No sclerotic or lytic lesions. Hemangioma formation noted in the lumbar spine. There is an acute superior endplate fracture of L4 with extension into the anterior cortex and loss of height 20%, there is no retropulsion identified. OVERLYING SOFT TISSUES: Postsurgical changes in the abdominal wall. IMPRESSION: 1. Acute fracture of L4. No acute intra-abdominal process. Incidental findings detailed above Reviewed, dictated and finalized at location P.
--- OUTSIDE RECORDS SUMMARY | 2025-03-09 17:39 | XMS_ITS | Clinical Summary ---
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 research. This laboratory is certified under the Clinical Laboratory Improvement Amendments (CLIA) as qualified to perform high complexity clinical laboratory testing. This case has been personally reviewed and interpreted by the attending (teaching) pathologist. 02/08/2025 1:43 PM [facility] Embedded Images 02/08/2025 1:43 PM CDT [facility] Resection without Tumor ENTIRE SPLEEN / Unknown 02/06/2025 10:10 PM CDT 02/07/2025 7:39 AM CDT Comment:Pre-op diagnosis: Blunt abdominal trauma, sequela [S39.91XS] Donn Stanton MD LAB - PATHOLOGY/CYTOLOGY ORDER RUDDY Final Result [facility] [address] [facility]. [place], [place] [address] [phone] * ETT LINE PERFORMABLE (02/06/2025 9:40 PM CDT) Narrative Sonny Dean DO - 02/06/2025 9:40 PM CDT Sonny Dean DO 02/06/2025 9:41 PM Endotracheal Tube Placement: Patient Location: OR. Intubation Event Date/Time: 02/06/2025 9:30 PM Procedure: intubation ([id number]) Procedure Section: Sedation: under general anesthesia. Indications for Airway Management: anesthesia Induction: standard IV Patient Position: supine Mask Ventilation: easy. Blade Type: Issa Blade Size: 3 Laryngoscopy View: grade 1 (full cords) Intubation Adjuncts: stylet Tube: endotracheal tube Placement: oral Tube type: cuff - inflated Tube Size (MM): 7 Depth of Insertion (CM): 22 Measured From: teeth Cuff volume (mL): 6 Cuff Inflated With: air Number of Attempts: 1. Placement Verified By: direct visualization, bilateral breath sounds, chest auscultation and CO2 monitor Tube secured with: adhesive tape. Dentition unchanged? Yes Difficult Airway? No. Procedure Start Time: 02/06/2025 9:30 PM. Staff Section Anesthesia Provider: Werner Galaviz MD Provider #1: Sonny Dean DO, Performed the procedure. Additional Comments: AT intubation by PATRIA Dominguez. Werner Galaviz MD GENERAL ANESTHESIA ORDERABLES Final Result * LACTIC ACID BLOOD REFLEX TO REPEAT (02/04/2025 9:58 PM CDT) Only the most recent of2 resultswithin the time period is included. Lactic Acid-Stat 1.9 <=2.0 mmol/L 02/04/2025 10:38 PM CDT [facility] Blood BLOOD SPECIMEN / Unknown Venipuncture / Unknown 02/04/2025 9:58 PM CDT 02/04/2025 10:08 PM CDT Vinicius Ewing MD LAB - CHEMISTRY ORDERABLES F inal Result [facility] [address] [place] [address], [facility] [phone] * ETT LINE PERFORMABLE (02/04/2025 5:52 PM CDT) Narrative Donn Chilel MD - 02/04/2025 5:52 PM CDT Donn Chilel MD 02/04/2025 5:53 PM Endotracheal Tube Placement: Patient Location: OR. Intubation Event Date/Time: 02/04/2025 5:34 PM Procedure: intubation ([id number]) Procedure Section: Sedation: under general anesthesia. Indications for Airway Management: anesthesia Induction: standard IV and rapid sequence Patient Position: sniffing and supine Mask Ventilation: not attempted. Blade Type: Issa Blade Size: 3 Laryngoscopy View: grade 1 (full cords) Intubation Adjuncts: stylet Tube: endotracheal tube Placement: oral Tube type: cuff - inflated Tube Size (MM): 7 Depth of Insertion (CM): 22 Measured From: lips Cuff volume (mL): 6 Cuff Inflated With: air Number of Attempts: 1. Placement Verified By: direct visualization, bilateral breath sounds, chest auscultation and CO2 monitor Tube secured with: adhesive tape. Dentition unchanged? Yes Difficult Airway? No. Procedure Start Time: 02/04/2025 5:34 PM. Staff Section Anesthesia Provider: Donn Chilel MD, Performed the procedure Provider #1: Sita Rudolph MD. Sita Rudolph MD GENERAL ANESTHESIA ORDERABL ES Final Result * PREPARE (CROSSMATCH) RBC UNIT(S), 1 Units (02/04/2025 4:50 PM CDT) Only the most recent of2 resultswithin the time period is included. Unit Description N/A [facility] Blood Bank BLOOD SPECIMEN / Unknown 02/04/2025 4:50 PM CDT 02/04/2025 5:54 PM CDT Mary Khan MD LAB - BLOOD BANK ORDERABLE S Final Result Performing Organization Address City/[facility]/ZIP Co de Phone Number [facility] [address] [place] [address], [place] [phone] * (ABNORMAL) C-REACTIVE PROTEIN (02/04/2025 4:50 PM CDT) C-Reactive Protein 7.9(H) <=0.5 mg/dL 02/04/2025 5:27 PM CDT [facility] Blood BLOOD SPECIMEN / Unknown Venipuncture / Unknown 02/04/2025 4:50 PM CDT 02/04/2025 4:59 PM CDT Vinicius Ewing MD LAB - CHEMISTRY ORDERABLES F inal Result Performing Organization Address City/[facility]/ZIP Co de Phone Number [facility] [address] [place] [address], [place] [phone] * PREPARE FFP UNIT(S), 4 Units (02/04/2025 4:50 PM CDT) Unit Description N/A [facility] Blood Bank BLOOD SPECIMEN / Unknown 02/04/2025 4:50 PM CDT 02/04/2025 5:54 PM CDT Vinicius Ewing MD LAB - BLOOD BANK ORDERABLES Final Result Performing Organization Address City/[facility]/ZIP Co de Phone Number [facility] [address] [place] [address], [place] [phone] * TYPE + SCREEN PANEL (02/04/2025 4:50 PM CDT) Only the most recent of2 resultswithin the time period is included. Antibody Screen NEG 02/04/2025 5:58 PM CDT [facility] ABO Rh AB POS 02/04/2025 5:58 PM CDT [facility] Blood Bank BLOOD SPECIMEN / Unknown Venipuncture / Unknown 02/04/2025 4:50 PM CDT 02/04/2025 5:54 PM CDT Vinicius Ewing MD LAB - BLOOD BANK ORDERABLES Final Result Performing Organization Address City/[facility]/ZIP Co de Phone Number [facility] [address] [place] [address], [facility] [phone] * PT-INR (02/04/2025 4:50 PM CDT) Only the most recent of2 resultswithin the time period is included. PT 14.0 12.1 - 14.8 Seconds 02/04/2025 5:29 PM CDT [facility] INR 1.1 See Comment 02/04/2025 5:29 PM CDT [facility] Comment:The suggested therap eutic range for standard coumadin (warfarin) therapy is an INR of 2.0-3.0. For high-risk patients (Mechanical Mitral Valve Prosthesis, etc.), the suggested prophylactic therapeutic range is an INR of 2.5-3.5. Blood BLOOD SPECIMEN / Unknown Venipuncture / Unknown 02/04/2025 4:50 PM CDT 02/04/2025 4:55 PM CDT Vinicius Ewing MD LAB - COAGULATION ORDERABLES Final Result [facility] [address] [place] [address], [place] [phone] * ERYTHROCYTE SEDIMENTATION RATE (02/04/2025 4:50 PM CDT) Erythrocyte Sedimentation Rate Westergren 19 0 - 30 MM/HR 02/04/2025 5:13 PM CDT [facility] Blood BLOOD SPECIMEN / Unknown Venipuncture / Unknown 02/04/2025 4:50 PM CDT 02/04/2025 4:59 PM CDT us Vinicius Ewing MD LAB - HEMATOLOGY ORDERABLES Final Result [facility] [address] [place] [address], [facility] [phone] * (ABNORMAL) COMPREHENSIVE METABOLIC PANEL (02/04/2025 4:50 PM CDT) BUN 18 7 - 26 mg/dL 02/04/2025 5:27 PM [facility] Creatinine 0.68 0.56 - 0.96 mg/dL 02/04/2025 5:27 PM [facility] Sodium 136 136 - 145 mmol/L 02/04/2025 5:27 PM [facility] Potassium 4.1 3.5 - 4.5 mmol/L 02/04/2025 5:27 PM [facility] Chloride 105 98 - 107 mmol/L 02/04/2025 5:27 PM [facility] CO2 26 22 - 29 mmol/L 02/04/2025 5:27 PM [facility] Glucose 144(H) 70 - 99 mg/dL 02/04/2025 5:27 PM [facility] Calcium 8.2(L) 8.4 - 10.2 mg/dL 02/04/2025 5:27 PM [facility] Protein Total 5.3(L) 6.0 - 8.3 g/dL 02/04/2025 5:27 PM [facility] Albumin 3.1(L) 3.4 - 5.0 g/dL 02/04/2025 5:27 PM [facility] Bilirubin Total 1.4(H) 0.2 - 1.2 mg/dL 02/04/2025 5:27 PM [facility] Alkaline Phosphatase 47 40 - 150 U/L 02/04/2025 5:27 PM [facility] ALT 15 5 - 55 U/L 02/04/2025 5:27 PM [facility] AST 21 5 - 34 U/L 02/04/2025 5:27 PM [facility] Anion Gap 5(L) 6 - 16 02/04/2025 5:27 PM [facility] BUN/Creatinine Ratio 26(H) 7 - 23 02/04/2025 5:27 PM [facility] Osmolality Calculated 286 275 - 295 mOsm/kg 02/04/2025 5:27 PM [facility] Albumin/Globulin Ratio 1.4 1.1 - 2.3 02/04/2025 5:27 PM [facility] eGFR by CKD-EPI >90 >=90 mL/min/1.7 3 m2 02/04/2025 5:27 PM [facility] Comment:Estimated Glomerular Filtration Rate (eGFR) calculated using the CKD-EPI Creatinine Equation (2020), per the National Kidney Foundation and [place] [employer] recommendations. Blood BLOOD SPECIMEN / Unknown Venipuncture / Unknown 02/04/2025 4:50 PM CDT 02/04/2025 4:59 PM CDT us Vinicius Ewing MD LAB - CHEMISTRY ORDERABLES F inal Result [facility] [address] [place] [address], [facility] [phone] * CT Abdomen Pelvis W Contrast (02/04/2025 4:37 PM CDT) Anatomical Region Laterality Modality Abdomen, Pelvis Computed Tomogra phy 02/04/2025 4:43 PM CDT Impressions 02/04/2025 8:57 PM CDT Impression: 1.There are a few pockets of free air is noted in the peritoneal cavity. There is suggestion of focal defect in the posterior wall of the proximal transverse colon concerning for colonic perforation (this could also be from perforated colonic diverticula as patient has diverticulosis). 2.Small to moderate fluid collection in the peritoneal cavity associated with diffuse peritoneal thickening and enhancement, soft tissue stranding in the small bowel mesentery and omentum. There is associated mild mural thickening and enhancement of the small bowel loops. Findings are consistent with acute peritonitis. These findings were discussed in detail with the patient's care provider, Dr Marley by Dr. Nguyen Pichardo via telephone at 02/04/2025 4:58 PM with readback comprehension and verification. > Dictated by Nguyen Pichardo Dr, MD (fixed income trading vice president). > Dictated by Ho[employer] Maker [employer] I, Beverly Brown MD have personally reviewed and interpreted this examination/study. > Interpreting Provider: Beverly Brown MD on 02/04/2025 8:57 PM Narrative 02/04/2025 8:57 PM CDT PROCEDURE: CT ABDOMEN PELVIS W CONTRAST, DATE/TIME OF EXAM: 02/04/2025 4:37 PM, LOCATION [facility] INDICATION: T14.90XA: Trauma ADDITIONAL CLINICAL INFORMATION: Ordering Provider Reason For Exam: trauma, bowel perforation Technologist Note: Additional: COMPARISON: CT chest abdomen pelvis dated 01/28/2025. TECHNIQUE: CT of the abdomen and pelvis was performed following the uneventful administration of 100 mL of Isovue 370 intravenous contrast according to standard protocol. Findings: Lower Chest: Mild bilateral dependent atelectasis is present in the visualized lung bases. Liver: The liver is diffusely hypoattenuating, consistent with diffuse hepatic steatosis. Mild perihepatic ascites. Gallbladder and Bile Ducts: Normal. Spleen: Normal. Pancreas: Normal. Adrenals: Normal. Kidneys: Benign cysts within the bilateral kidneys. Gastrointestinal: There is small pockets of free air within the peritoneal cavity. There is suggestion of a focal bowel wall defect in the posterior wall of the proximal transverse colon (image 78 series 3). There is associated loculated fluid collection with air pockets in the adjacent pericolonic region. Colonic diverticulosis noted predominantly in the sigmoid colon. No focal mass lesions or obstruction are seen in the colon. Stomach is unremarkable. Small bowel loops shows mild mural thickening and enhancement.Normal appendix. Mesentery/Peritoneum/Retroperitoneum: Small to moderate ascites associated with the diffuse peritoneal thickening and enhancement. Soft tissue stranding noted in the small bowel mesentery and omentum. Bladder: Contrast is seen within the bladder which limits evaluation Reproductive Organs: Uterus normal. Vasculature: No vascular abnormality is present. Bones: Hemangioma within the L5 vertebral body. The visible osseous structures are intact. Degenerative changes are seen in the spine. Soft tissues: Normal. Procedure Note Beverly Brown MD - 02/04/2025 PROCEDURE: CT ABDOMEN PELVIS W CONTRAST, DATE/TIME OF EXAM: 02/04/2025 4:37 PM, LOCATION [facility] INDICATION: T14.90XA: Trauma ADDITIONAL CLINICAL INFORMATION: Ordering Provider Reason For Exam: trauma, bowel perforation Technologist Note: Additional: COMPARISON: CT chest abdomen pelvis dated 01/28/2025. TECHNIQUE: CT of the abdomen and pelvis was performed following the uneventful administration of 100 mL of Isovue 370 intravenous contrast according to standard protocol. Findings: Lower Chest: Mild bilateral dependent atelectasis is present in the visualized lung bases. Liver: The liver is diffusely hypoattenuating, consistent with diffuse hepatic steatosis. Mild perihepatic ascites. Gallbladder and Bile Ducts: Normal. Spleen: Normal. Pancreas: Normal. Adrenals: Normal. Kidneys: Benign cysts within the bilateral kidneys. Gastrointestinal: There is small pockets of free air within the peritoneal cavity. Thereis suggestion of a focal bowel wall defect in the posterior wall of the proximal transverse colon (image 78 series 3). There is associated loculated fluid collection with air pockets in the adjacent pericolonic region. Colonic diverticulosis noted predominantly in the sigmoid colon.No focal mass lesions or obstruction are seen in the colon. Stomach is unremarkable. Small bowel loops shows mild mural thickeningand enhancement.Normal appendix. Mesentery/Peritoneum/Retroperitoneum: Small to moderate ascites associated with the diffuse peritonealthickening and enhancement. Soft tissue stranding noted in the small bowelmesentery and omentum. Bladder: Contrast is seen within the bladder which limits evaluation Reproductive Organs: Uterus normal. Vasculature: No vascular abnormality is present. Bones: Hemangioma within the L5 vertebral body. The visible osseous structuresare intact. Degenerative changes are seen in the spine. Soft tissues: Normal. Impression: 1.There are a few pockets of free air is noted in the peritoneal cavity. There is suggestion of focal defect in the posterior wall of theproximal transverse colon concerning for colonic perforation (this could also be from perforated colonic diverticula as patient has diverticulosis). 2.Small to moderate fluid collection in the peritoneal cavity associated with diffuse peritoneal thickening and enhancement, soft tissuestranding in the small bowel mesentery and omentum. There is associated mild mural thickening and enhancement of the small bowel loops. Findings are consistent with acute peritonitis. These findings were discussed in detail with the patient's careprovider, Dr Marley by Dr. Nguyen Pichardo via telephone at 02/04/2025 4:58 PM with readback comprehension and verification. > Dictated by Nguyen Pichardo Dr, MD (fixed income trading vice president). > Dictated by [employer] Maker [employer] I, Beverly Brown MD have personally reviewed and interpreted this examination/study. > Interpreting Provider: Beverly Brown MD on 58:57 [address] E[address] MD [address] ORDERABLES Final Result * CULTURE BLOOD (02/04/2025 4:20 PM CDT) Only the most recent of2 resultswithin the time period is included. Culture No growth day 5 DAIN 02/09/2025 7:31 PM CDT [facility] Blood PERIPHERAL BLOOD / Unknown Lab Venipuncture / Unknown 02/04/2025 4:20 PM CDT 02/04/2025 4:23 PM CDT Vinicius Ewing MD LAB - MICROBIOLOGY ORDERABLE S Final Result [facility] [address] [place] [address], [facility] [phone] * XR Tibia Fibula Right 2Vw (01/28/2025 11:58 PM CDT) Anatomical Region Laterality Modality Lower Extremity Digital Radiogra phy 01/29/2025 2:03 AM CDT Impressions 01/29/2025 2:50 AM CDT IMPRESSION: No acute tibial or fibular fracture identified. Report was dictated by Luis Angel Flood MD, ([facility] resident). > Dictated by Hoop Maker Machine I, Rigo Mcfarlane MD have personally reviewed and interpreted this examination/study. > Interpreting Provider: Rigo Mcfarlane MD on 01/29/2025 2:50 AM Narrative 01/29/2025 2:50 AM CDT PROCEDURE: XR TIBIA FIBULA RIGHT 2VW, DATE/TIME OF EXAM: 01/28/2025 11:58 PM, LOCATION [facility] INDICATION: T14.90XA: Trauma ADDITIONAL CLINICAL INFORMATION: Ordering Provider Reason For Exam: Technologist Note: Additional: COMPARISON: None. FINDINGS: The tibia and fibula are intact without evidence of acute fracture. Bone density and texture are normal. No soft tissue swelling is present. Procedure Note Rigo Mcfarlane MD - 01/29/2025 PROCEDURE: XR TIBIA FIBULA RIGHT 2VW, DATE/TIME OF EXAM: 1:58 PM, LOCATION [facility] INDICATION: T14.90XA: Trauma ADDITIONAL CLINICAL INFORMATION: Ordering Provider Reason For Exam: Technologist Note: Additional: COMPARISON: None. FINDINGS: The tibia and fibula are intact without evidence of acute fracture. Bone density and texture are normal. No soft tissue swelling is present. IMPRESSION: No acute tibial or fibular fracture identified. Report was dictated by Luis Angel Flood MD, ([facility] resident). > Dictated by Ho[employer] Maker Machine I, Rigo Mcfarlane MD have personally reviewed and interpreted this examination/study. > Interpreting Provider: Rigo Mcfarlane MD on 01/29/2025 2:50 AM Oli Vázquez MD DIAGNOSTIC IMAGING ORDERAB LES Final Result * XR Knee Right 2Vw or Less (01/28/2025 11:58 PM CDT) Anatomical Region Laterality Modality Lower Extremity Digital Radiogra phy 01/29/2025 1:59 AM CDT Impressions 01/29/2025 2:50 AM CDT IMPRESSION: No acute fracture or dislocation. Moderate tricompartmental osteoarthritis with lateral knee joint narrowing. Report was dictated by Luis Angel Flood MD, ([facility] resident). > Dictated by Hoop Maker Machine I, Rigo Mcfarlane MD have personally reviewed and interpreted this examination/study. > Interpreting Provider: Rigo Mcfarlane MD on 01/29/2025 2:50 AM Narrative 01/29/2025 2:50 AM CDT PROCEDURE: XR KNEE RIGHT 2VW OR LESS, DATE/TIME OF EXAM: 01/28/2025 11:58 PM, LOCATION [facility] INDICATION: T14.90XA: Trauma COMPARISON: None. FINDINGS: Moderate tricompartmental osteophytosis and osteoarthritis. The osseous structures are intact and well aligned without acute fracture or dislocation. The lateral knee compartment is narrowed. No joint effusion is seen. Bone density and texture are normal. Soft tissue edema of the knee. Procedure Note Rigo Mcfarlane MD - 01/29/2025 PROCEDURE: XR KNEE RIGHT 2VW OR LESS, DATE/TIME OF EXAM: 511:58 PM, LOCATION [facility] INDICATION: T14.90XA: Trauma COMPARISON: None. FINDINGS: Moderate tricompartmental osteophytosis and osteoarthritis. The osseous structures are intact and well aligned without acute fracture or dislocation. The lateral knee compartment is narrowed. No joint effusionis seen. Bone density and texture are normal. Soft tissue edema of the knee. IMPRESSION: No acute fracture or dislocation. Moderate tricompartmental osteoarthritis with lateral knee jointnarrowing. Report was dictated by Luis Angel Flood MD, ([facility] resident). > Dictated by Ho[employer] Maker [employer] I, Rigo Mcfarlane MD have personally reviewed and interpreted this examination/study. > Interpreting Provider: Rigo Mcfarlane MD on 01/29/2025 2:50 AM Oli Vázquez MD DIAGNOSTIC IMAGING ORDERAB LES Final Result * CT CHEST ABDOMEN PELVIS W CONT - Abdomen-pelvis trauma, blunt or penetrating (01/28/2025 9:21 PM CDT) Anatomical Region Laterality Modality Chest, Abdomen, Pelvis Computed Tomography 01/28/2025 10:2 5 PM CDT Impressions 01/29/2025 1:48 AM CDT Impression: 1.Hyperdense material within the stomach which appears unchanged between phases is favored to represent ingested material however cannot definitively exclude hemorrhage given lack of noncontrast imaging. 2.Multiple bilateral nonobstructive renal calculi with the largest one located in the left interpolar region measuring 0.6 cm 3.A 0.9 cm left adrenal nodule is present. This can be evaluated with an adrenal protocol CT/MRI if indicated. > Dictated by Bon Alfaro MD > Dictated by [employer] Maker [employer] I, Jose G Mejía MD have personally reviewed and interpreted this examination/study. > Interpreting Provider: Jose G Mejía MD on 01/29/2025 1:48 AM Narrative 01/29/2025 1:48 AM CDT PROCEDURE: CT CHEST ABDOMEN PELVIS W CONT, DATE/TIME OF EXAM: 01/28/2025 9:22 PM, LOCATION [facility] INDICATION: T14.90XA: Trauma ADDITIONAL CLINICAL INFORMATION: Ordering Provider Reason For Exam: Technologist Note: Additional: COMPARISON: None. TECHNIQUE: CT of the chest, abdomen, and pelvis was performed after the uneventful administration of 100 mL of Isovue 370 intravenous contrast according to standard protocol. Findings: Chest: Lower Neck and Axillae: Normal. Lungs: Mild bilateral dependent atelectasis is present. No suspicious pulmonary nodules are identified. No pleural fluid or pneumothorax is present. Heart and Pericardium: The cardiac chambers are normal in size. No pericardial fluid or thickening is present. Mediastinum and Zhane: No mediastinal hemorrhage is present. No enlarged lymph nodes are present. Thoracic Vasculature: No vascular abnormality is present. Abdomen/pelvis: Liver: Normal. Gallbladder and Bile Ducts: Normal. Spleen: Normal. Pancreas: Normal. Adrenals: A 0.9 cm left adrenal nodule is present. Kidneys: Multiple bilateral renal cysts. Multiple bilateral nonobstructive calculi with the largest one located in the left interpolar region measuring 0.6 cm. Gastrointestinal: Hyperdense material within the stomach which appears unchanged between sequences. The visualized loops of small bowel are unremarkable. Colonic diverticulosis without evidence of diverticulitis is seen. Normal appendix. Mesentery/Peritoneum/Retroperitoneum: No free intraperitoneal air. No free fluid in the abdomen or pelvis. Bladder: Normal. Reproductive Organs: The uterus is normal. Abdominal Vasculature: No vascular abnormality is present. Bones: Bone windows demonstrate no suspicious lytic or blastic lesions. L5 osseous hemangioma. The visible osseous structures are intact. Degenerative changes are seen in the spine. Soft tissues: Small umbilical hernia. Osteosarcopenia. Procedure Note Jose G Mejía MD - 01/29/2025 PROCEDURE: CT CHEST ABDOMEN PELVIS W CONT, DATE/TIME OF EXAM:01/28/2025 9:22 PM, LOCATION [facility] INDICATION: T14.90XA: Trauma ADDITIONAL CLINICAL INFORMATION: Ordering Provider Reason For Exam: Technologist Note: Additional: COMPARISON: None. TECHNIQUE: CT of the chest, abdomen, and pelvis was performed after the uneventful administration of 100 mL of Isovue 370 intravenous contrast according to standard protocol. Findings: Chest: Lower Neck and Axillae: Normal. Lungs: Mild bilateral dependent atelectasis is present. No suspicious pulmonary nodules are identified. No pleural fluid or pneumothorax is present. Heart and Pericardium: The cardiac chambers are normal in size. No pericardial fluid orthickening is present. Mediastinum and Zhane: No mediastinal hemorrhage is present. No enlarged lymph nodes arepresent. Thoracic Vasculature: No vascular abnormality is present. Abdomen/pelvis: Liver: Normal. Gallbladder and Bile Ducts: Normal. Spleen: Normal. Pancreas: Normal. Adrenals: A 0.9 cm left adrenal nodule is present. Kidneys: Multiple bilateral renal cysts. Multiple bilateral nonobstructivecalculi with the largest one located in the left interpolar region measuring 0.6 cm. Gastrointestinal: Hyperdense material within the stomach which appears unchanged between sequences. The visualized loops of small bowel are unremarkable. Colonic diverticulosis without evidence of diverticulitis is seen. Normalappendix. Mesentery/Peritoneum/Retroperitoneum: No free intraperitoneal air. No free fluid in the abdomen or pelvis. Bladder: Normal. Reproductive Organs: The uterus is normal. Abdominal Vasculature: No vascular abnormality is present. Bones: Bone windows demonstrate no suspicious lytic or blastic lesions. [id number] hemangioma. The visible osseous structures are intact. Degenerativechanges are seen in the spine. Soft tissues: Small umbilical hernia. Osteosarcopenia. Impression: 1.Hyperdense material within the stomach which appears unchanged between phases is favored to represent ingested material however cannot definitively exclude hemorrhage given lack of noncontrast imaging. 2.Multiple bilateral nonobstructive renal calculi with the largest one located in the left interpolar region measuring 0.6 cm 3.A 0.9 cm left adrenal nodule is present. This can be evaluated with an adrenal protocol CT/MRI if indicated. > Dictated by Bon Alfaro MD > Dictated by [employer], Jose G Mejía MD have personally reviewed and interpreted this examination/study. > Interpreting Provider: Jose G Mejía MD on 01/29/2025 1:48 AM Rinku Baird MD CT ORDERABLES Final Result * CT LUMBAR SPINE WO CONTRAST - T/L-spine trauma, Spine fracture (01/28/2025 9:21 PM CDT) Anatomical Region Laterality Modality Spine Computed Tomogra phy 01/28/2025 9:42 PM CDT Impressions 01/28/2025 10:03 PM CDT IMPRESSION: 1. No acute intracranial process. 2. No evidence of acute fracture in the cervical, thoracic, or lumbar spine. 3. No evidence of large arterial injury in the neck. 4. Multiple small nonobstructing calculi in the kidneys bilaterally. 5. Multiple chronic findings as detailed in the report. > Interpreting Provider: Leighton Rodriguez MD on 01/28/2025 10:03 PM Narrative 01/28/2025 10:03 PM CDT PROCEDURE: CT HEAD WO CONTRAST, CT LUMBAR SPINE WO CONTRAST, CT THORACIC SPINE WO CONTRAST, CT ANGIO NECK, CT CERVICAL SPINE WO CONTRAST, DATE/TIME OF EXAM: 01/28/2025 9:22 PM, LOCATION [facility] INDICATION: T14.90XA: Trauma ADDITIONAL CLINICAL INFORMATION: Ordering Provider Reason For Exam: Technologist Note: Additional: EXAMINATION: 1. Computed tomography (CT) of the head without contrast 2. CT of the cervical spine without contrast 3. CT of the thoracic spine without contrast 4. CT of the lumbar spine without contrast 5. CT angiography of the neck with contrast TECHNIQUE: CT of the head and cervical spine were performed without contrast according to standard protocol. Reformatted axial, sagittal, and coronal images of the thoracic and lumbar spine were obtained by the technologist from a concurrently performed body CT and sent to the workstation for review. CT angiography of the neck was obtained after the uneventful administration of mL Isovue-370 intravenous contrast. Three dimensional postprocessing was performed by the technologist and sent to the workstation for review. COMPARISON: No prior study is available for comparison at the time of this dictation. FINDINGS: Head: No acute intracranial hemorrhage or intra- or extra-axial fluid collections are identified. The ventricles are of normal size, shape, and morphology. The basal cisterns are patent. No mass effect or midline shift is seen. The jacome-white matter differentiation is normal. The visualized portions of the orbits, paranasal sinuses, and mastoids appear normal. Moderate left occipital scalp swelling without underlying fracture. Cervical spine: No soft tissue abnormality is identified. The alignment is normal. The prevertebral soft tissue is normal in thickness. The bones are moderately osteopenic. Vertebral bodies are normal in height without evidence of acute fracture. Other than moderate middle atlantoaxial joint osteoarthritis, the craniocervical junction appears normal. There is mild to moderate multilevel degenerative disc disease. The central canal is moderately stenotic at multiple levels due to a combination of degenerative disc and joint disease and congenital shortening of the pedicles. There are varying degrees of moderate to severe multiple facet osteoarthritis. There are varying degrees of mild to moderate multilevel uncovertebral joint osteoarthritis with the same degree of neural foraminal stenosis at these levels. Neck CTA findings: The visible aortic arch appears normal. There is a common origin of the innominate and left common carotid arteries from the aortic arch. The innominate artery and both subclavian arteries appear normal. The right common and internal carotid arteries as well as the right carotid bifurcation are patent. The left common and internal carotid arteries as well as the left carotid bifurcation are patent. The cervical vertebral arteries are patent. There is no evidence of arterial injury in the neck. Thoracic spine: No soft tissue abnormality is identified. The alignment is normal. The mineralization of the bones is normal. Vertebral bodies are normal in height without evidence of acute fracture. There is mild multilevel degenerative disc disease. Bridging syndesmophytes at multiple levels suggest early diffuse idiopathic skeletal hyperostosis (DISH). The central canal is patent. There are varying degrees of up to moderate facet osteoarthritis with the same degree of neural foraminal stenosis at these levels. Lumbar spine: Multiple small nonobstructing calculi in the kidneys bilaterally. The alignment is normal. A large osseous hemangioma in the L5 occupying the entire vertebral body. Vertebral bodies are normal in height without evidence of acute fracture. There is up to moderate multilevel degenerative disc disease. The central canal is patent. There are varying degrees of up to severe facet osteoarthritis with the same degree of neural foraminal stenosis at these levels. Moderate osteoarthritis of the sacroiliac joints. Procedure Note Leighton Rodriguez MD - 01/28/2025 PROCEDURE: CT HEAD WO CONTRAST, CT LUMBAR SPINE WO CONTRAST, CTTHORACIC SPINE WO CONTRAST, CT ANGIO NECK, CT CERVICAL SPINE WO CONTRAST,DATE/TIME OF EXAM: 01/28/2025 9:22 PM, LOCATION [facility] INDICATION: T14.90XA: Trauma ADDITIONAL CLINICAL INFORMATION: Ordering Provider Reason For Exam: Technologist Note: Additional: EXAMINATION: 1. Computed tomography (CT) of the head without contrast 2. CT of the cervical spine without contrast 3. CT of the thoracic spine without contrast 4. CT of the lumbar spine without contrast 5. CT angiography of the neck with contrast TECHNIQUE: CT of the head and cervical spine were performed without contrast according to standard protocol. Reformatted axial, sagittal,and coronal images of the thoracic and lumbar spine were obtained by the technologist from a concurrently performed body CT and sent to the workstation for review. CT angiography of the neck was obtained afterthe uneventful administration of mL Isovue-370 intravenous contrast. Three dimensional postprocessing was performed by the technologist and sent to the workstation for review. COMPARISON: No prior study is available for comparison at the time ofthis dictation. FINDINGS: Head: No acute intracranial hemorrhage or intra- or extra-axial fluidcollections are identified. The ventricles are of normal size, shape, andmorphology. The basal cisterns are patent. No mass effect or midline shift is seen.The jacome-white matter differentiation is normal. The visualized portions of the orbits, paranasal sinuses, and mastoids appear normal. Moderate left occipital scalp swelling without underlying fracture. Cervical spine: No soft tissue abnormality is identified. The alignment is normal. The prevertebral soft tissue is normal in thickness. The bones are moderately osteopenic. Vertebral bodies arenormal in height without evidence of acute fracture. Other than moderate middle atlantoaxial joint osteoarthritis, the craniocervical junction appears normal. There is mild to moderate multilevel degenerative disc disease.The central canal is moderately stenotic at multiple levels due to a combination of degenerative disc and joint disease and congenital shortening of the pedicles. There are varying degrees of moderate tosevere multiple facet osteoarthritis. There are varying degrees of mild to moderate multilevel uncovertebral joint osteoarthritis with the samedegree of neural foraminal stenosis at these levels. Neck CTA findings: The visible aortic arch appears normal. There is a common origin of the innominate and left common carotid arteries from the aortic arch. The innominate artery and both subclavian arteries appear normal. The right common and internal carotid arteries as well as the right carotid bifurcation are patent. The left common and internal carotid arteries as well as the left carotid bifurcation are patent. The cervical vertebral arteries are patent. There is no evidence of arterial injury in theneck. Thoracic spine: No soft tissue abnormality is identified. The alignment is normal. The mineralization of the bones is normal. Vertebral bodies are normal in height without evidence of acutefracture. There is mild multilevel degenerative disc disease. Bridgingsyndesmophytes at multiple levels suggest early diffuse idiopathic skeletalhyperostosis (DISH). The central canal is patent. There are varying degrees of up to moderate facet osteoarthritis with the same degree of neural foraminal stenosis at these levels. Lumbar spine: Multiple small nonobstructing calculi in the kidneys bilaterally. The alignment is normal. A large osseous hemangioma in the L5 occupyingthe entire vertebral body. Vertebral bodies are normal in height without evidence of acute fracture. There is up to moderate multileveldegenerative disc disease. The central canal is patent. There are varying degrees ofup to severe facet osteoarthritis with the same degree of neural foraminal stenosis at these levels. Moderate osteoarthritis of the sacroiliac joints. IMPRESSION: 1. No acute intracranial process. 2. No evidence of acute fracture in the cervical, thoracic, or lumbar spine. 3. No evidence of large arterial injury in the neck. 4. Multiple small nonobstructing calculi in the kidneys bilaterally. 5. Multiple chronic findings as detailed in the report. > Interpreting Provider: Leighton Rodriguez MD on 01/28/2025 10:03 PM Rinku Baird MD CT ORDERABLES Final Result * CT THORACIC SPINE WO CONTRAST - T/L-spine trauma, spine fracture (01/28/2025 9:21 PM CDT) Anatomical Region Laterality Modality Spine Computed Tomogra phy 01/28/2025 9:42 PM CDT Impressions 01/28/2025 10:03 PM CDT IMPRESSION: 1. No acute intracranial process. 2. No evidence of acute fracture in the cervical, thoracic, or lumbar spine. 3. No evidence of large arterial injury in the neck. 4. Multiple small nonobstructing calculi in the kidneys bilaterally. 5. Multiple chronic findings as detailed in the report. > Interpreting Provider: Leighton Rodriguez MD on 01/28/2025 10:03 PM Narrative 01/28/2025 10:03 PM CDT PROCEDURE: CT HEAD WO CONTRAST, CT LUMBAR SPINE WO CONTRAST, CT THORACIC SPINE WO CONTRAST, CT ANGIO NECK, CT CERVICAL SPINE WO CONTRAST, DATE/TIME OF EXAM: 01/28/2025 9:22 PM, LOCATION [facility] INDICATION: T14.90XA: Trauma ADDITIONAL CLINICAL INFORMATION: Ordering Provider Reason For Exam: Technologist Note: Additional: EXAMINATION: 1. Computed tomography (CT) of the head without contrast 2. CT of the cervical spine without contrast 3. CT of the thoracic spine without contrast 4. CT of the lumbar spine without contrast 5. CT angiography of the neck with contrast TECHNIQUE: CT of the head and cervical spine were performed without contrast according to standard protocol. Reformatted axial, sagittal, and coronal images of the thoracic and lumbar spine were obtained by the technologist from a concurrently performed body CT and sent to the workstation for review. CT angiography of the neck was obtained after the uneventful administration of mL Isovue-370 intravenous contrast. Three dimensional postprocessing was performed by the technologist and sent to the workstation for review. COMPARISON: No prior study is available for comparison at the time of this dictation. FINDINGS: Head: No acute intracranial hemorrhage or intra- or extra-axial fluid collections are identified. The ventricles are of normal size, shape, and morphology. The basal cisterns are patent. No mass effect or midline shift is seen. The jacome-white matter differentiation is normal. The visualized portions of the orbits, paranasal sinuses, and mastoids appear normal. Moderate left occipital scalp swelling without underlying fracture. Cervical spine: No soft tissue abnormality is identified. The alignment is normal. The prevertebral soft tissue is normal in thickness. The bones are moderately osteopenic. Vertebral bodies are normal in height without evidence of acute fracture. Other than moderate middle atlantoaxial joint osteoarthritis, the craniocervical junction appears normal. There is mild to moderate multilevel degenerative disc disease. The central canal is moderately stenotic at multiple levels due to a combination of degenerative disc and joint disease and congenital shortening of the pedicles. There are varying degrees of moderate to severe multiple facet osteoarthritis. There are varying degrees of mild to moderate multilevel uncovertebral joint osteoarthritis with the same degree of neural foraminal stenosis at these levels. Neck CTA findings: The visible aortic arch appears normal. There is a common origin of the innominate and left common carotid arteries from the aortic arch. The innominate artery and both subclavian arteries appear normal. The right common and internal carotid arteries as well as the right carotid bifurcation are patent. The left common and internal carotid arteries as well as the left carotid bifurcation are patent. The cervical vertebral arteries are patent. There is no evidence of arterial injury in the neck. Thoracic spine: No soft tissue abnormality is identified. The alignment is normal. The mineralization of the bones is normal. Vertebral bodies are normal in height without evidence of acute fracture. There is mild multilevel degenerative disc disease. Bridging syndesmophytes at multiple levels suggest early diffuse idiopathic skeletal hyperostosis (DISH). The central canal is patent. There are varying degrees of up to moderate facet osteoarthritis with the same degree of neural foraminal stenosis at these levels. Lumbar spine: Multiple small nonobstructing calculi in the kidneys bilaterally. The alignment is normal. A large osseous hemangioma in the L5 occupying the entire vertebral body. Vertebral bodies are normal in height without evidence of acute fracture. There is up to moderate multilevel degenerative disc disease. The central canal is patent. There are varying degrees of up to severe facet osteoarthritis with the same degree of neural foraminal stenosis at these levels. Moderate osteoarthritis of the sacroiliac joints. Procedure Note Leighton Rodriguez MD - 01/28/2025 PROCEDURE: CT HEAD WO CONTRAST, CT LUMBAR SPINE WO CONTRAST, CTTHORACIC SPINE WO CONTRAST, CT ANGIO NECK, CT CERVICAL SPINE WO CONTRAST,DATE/TIME OF EXAM: 01/28/2025 9:22 PM, LOCATION [facility] INDICATION: T14.90XA: Trauma ADDITIONAL CLINICAL INFORMATION: Ordering Provider Reason For Exam: Technologist Note: Additional: EXAMINATION: 1. Computed tomography (CT) of the head without contrast 2. CT of the cervical spine without contrast 3. CT of the thoracic spine without contrast 4. CT of the lumbar spine without contrast 5. CT angiography of the neck with contrast TECHNIQUE: CT of the head and cervical spine were performed without contrast according to standard protocol. Reformatted axial, sagittal,and coronal images of the thoracic and lumbar spine were obtained by the technologist from a concurrently performed body CT and sent to the workstation for review. CT angiography of the neck was obtained afterthe uneventful administration of mL Isovue-370 intravenous contrast. Three dimensional postprocessing was performed by the technologist and sent to the workstation for review. COMPARISON: No prior study is available for comparison at the time ofthis dictation. FINDINGS: Head: No acute intracranial hemorrhage or intra- or extra-axial fluidcollections are identified. The ventricles are of normal size, shape, andmorphology. The basal cisterns are patent. No mass effect or midline shift is seen.The jacome-white matter differentiation is normal. The visualized portions of the orbits, paranasal sinuses, and mastoids appear normal. Moderate left occipital scalp swelling without underlying fracture. Cervical spine: No soft tissue abnormality is identified. The alignment is normal. The prevertebral soft tissue is normal in thickness. The bones are moderately osteopenic. Vertebral bodies arenormal in height without evidence of acute fracture. Other than moderate middle atlantoaxial joint osteoarthritis, the craniocervical junction appears normal. There is mild to moderate multilevel degenerative disc disease.The central canal is moderately stenotic at multiple levels due to a combination of degenerative disc and joint disease and congenital shortening of the pedicles. There are varying degrees of moderate tosevere multiple facet osteoarthritis. There are varying degrees of mild to moderate multilevel uncovertebral joint osteoarthritis with the samedegree of neural foraminal stenosis at these levels. Neck CTA findings: The visible aortic arch appears normal. There is a common origin of the innominate and left common carotid arteries from the aortic arch. The innominate artery and both subclavian arteries appear normal. The right common and internal carotid arteries as well as the right carotid bifurcation are patent. The left common and internal carotid arteries as well as the left carotid bifurcation are patent. The cervical vertebral arteries are patent. There is no evidence of arterial injury in theneck. Thoracic spine: No soft tissue abnormality is identified. The alignment is normal. The mineralization of the bones is normal. Vertebral bodies are normal in height without evidence of acutefracture. There is mild multilevel degenerative disc disease. Bridgingsyndesmophytes at multiple levels suggest early diffuse idiopathic skeletalhyperostosis (DISH). The central canal is patent. There are varying degrees of up to moderate facet osteoarthritis with the same degree of neural foraminal stenosis at these levels. Lumbar spine: Multiple small nonobstructing calculi in the kidneys bilaterally. The alignment is normal. A large osseous hemangioma in the L5 occupyingthe entire vertebral body. Vertebral bodies are normal in height without evidence of acute fracture. There is up to moderate multileveldegenerative disc disease. The central canal is patent. There are varying degrees ofup to severe facet osteoarthritis with the same degree of neural foraminal stenosis at these levels. Moderate osteoarthritis of the sacroiliac joints. IMPRESSION: 1. No acute intracranial process. 2. No evidence of acute fracture in the cervical, thoracic, or lumbar spine. 3. No evidence of large arterial injury in the neck. 4. Multiple small nonobstructing calculi in the kidneys bilaterally. 5. Multiple chronic findings as detailed in the report. > Interpreting Provider: Leighton Rodriguez MD on 01/28/2025 10:03 PM Rinku Baird MD CT ORDERABLES Final Result * CT CERVICAL SPINE WO CONTRAST - C-Spine Trauma, Spine fracture (01/28/2025 9:21 PM CDT) Anatomical Region Laterality Modality Spine Computed Tomogra phy 01/28/2025 9:42 PM CDT Impressions 01/28/2025 10:03 PM CDT IMPRESSION: 1. No acute intracranial process. 2. No evidence of acute fracture in the cervical, thoracic, or lumbar spine. 3. No evidence of large arterial injury in the neck. 4. Multiple small nonobstructing calculi in the kidneys bilaterally. 5. Multiple chronic findings as detailed in the report. > Interpreting Provider: Leighton Rodriguez MD on 01/28/2025 10:03 PM Narrative 01/28/2025 10:03 PM CDT PROCEDURE: CT HEAD WO CONTRAST, CT LUMBAR SPINE WO CONTRAST, CT THORACIC SPINE WO CONTRAST, CT ANGIO NECK, CT CERVICAL SPINE WO CONTRAST, DATE/TIME OF EXAM: 01/28/2025 9:22 PM, LOCATION [facility] INDICATION: T14.90XA: Trauma ADDITIONAL CLINICAL INFORMATION: Ordering Provider Reason For Exam: Technologist Note: Additional: EXAMINATION: 1. Computed tomography (CT) of the head without contrast 2. CT of the cervical spine without contrast 3. CT of the thoracic spine without contrast 4. CT of the lumbar spine without contrast 5. CT angiography of the neck with contrast TECHNIQUE: CT of the head and cervical spine were performed without contrast according to standard protocol. Reformatted axial, sagittal, and coronal images of the thoracic and lumbar spine were obtained by the technologist from a concurrently performed body CT and sent to the workstation for review. CT angiography of the neck was obtained after the uneventful administration of mL Isovue-370 intravenous contrast. Three dimensional postprocessing was performed by the technologist and sent to the workstation for review. COMPARISON: No prior study is available for comparison at the time of this dictation. FINDINGS: Head: No acute intracranial hemorrhage or intra- or extra-axial fluid collections are identified. The ventricles are of normal size, shape, and morphology. The basal cisterns are patent. No mass effect or midline shift is seen. The jacome-white matter differentiation is normal. The visualized portions of the orbits, paranasal sinuses, and mastoids appear normal. Moderate left occipital scalp swelling without underlying fracture. Cervical spine: No soft tissue abnormality is identified. The alignment is normal. The prevertebral soft tissue is normal in thickness. The bones are moderately osteopenic. Vertebral bodies are normal in height without evidence of acute fracture. Other than moderate middle atlantoaxial joint osteoarthritis, the craniocervical junction appears normal. There is mild to moderate multilevel degenerative disc disease. The central canal is moderately stenotic at multiple levels due to a combination of degenerative disc and joint disease and congenital shortening of the pedicles. There are varying degrees of moderate to severe multiple facet osteoarthritis. There are varying degrees of mild to moderate multilevel uncovertebral joint osteoarthritis with the same degree of neural foraminal stenosis at these levels. Neck CTA findings: The visible aortic arch appears normal. There is a common origin of the innominate and left common carotid arteries from the aortic arch. The innominate artery and both subclavian arteries appear normal. The right common and internal carotid arteries as well as the right carotid bifurcation are patent. The left common and internal carotid arteries as well as the left carotid bifurcation are patent. The cervical vertebral arteries are patent. There is no evidence of arterial injury in the neck. Thoracic spine: No soft tissue abnormality is identified. The alignment is normal. The mineralization of the bones is normal. Vertebral bodies are normal in height without evidence of acute fracture. There is mild multilevel degenerative disc disease. Bridging syndesmophytes at multiple levels suggest early diffuse idiopathic skeletal hyperostosis (DISH). The central canal is patent. There are varying degrees of up to moderate facet osteoarthritis with the same degree of neural foraminal stenosis at these levels. Lumbar spine: Multiple small nonobstructing calculi in the kidneys bilaterally. The alignment is normal. A large osseous hemangioma in the L5 occupying the entire vertebral body. Vertebral bodies are normal in height without evidence of acute fracture. There is up to moderate multilevel degenerative disc disease. The central canal is patent. There are varying degrees of up to severe facet osteoarthritis with the same degree of neural foraminal stenosis at these levels. Moderate osteoarthritis of the sacroiliac joints. Procedure Note Leighton Rodriguez MD - 01/28/2025 PROCEDURE: CT HEAD WO CONTRAST, CT LUMBAR SPINE WO CONTRAST, CTTHORACIC SPINE WO CONTRAST, CT ANGIO NECK, CT CERVICAL SPINE WO CONTRAST,DATE/TIME OF EXAM: 01/28/2025 9:22 PM, LOCATION [facility] INDICATION: T14.90XA: Trauma ADDITIONAL CLINICAL INFORMATION: Ordering Provider Reason For Exam: Technologist Note: Additional: EXAMINATION: 1. Computed tomography (CT) of the head without contrast 2. CT of the cervical spine without contrast 3. CT of the thoracic spine without contrast 4. CT of the lumbar spine without contrast 5. CT angiography of the neck with contrast TECHNIQUE: CT of the head and cervical spine were performed without contrast according to standard protocol. Reformatted axial, sagittal,and coronal images of the thoracic and lumbar spine were obtained by the technologist from a concurrently performed body CT and sent to the workstation for review. CT angiography of the neck was obtained afterthe uneventful administration of mL Isovue-370 intravenous contrast. Three dimensional postprocessing was performed by the technologist and sent to the workstation for review. COMPARISON: No prior study is available for comparison at the time ofthis dictation. FINDINGS: Head: No acute intracranial hemorrhage or intra- or extra-axial fluidcollections are identified. The ventricles are of normal size, shape, andmorphology. The basal cisterns are patent. No mass effect or midline shift is seen.The jacome-white matter differentiation is normal. The visualized portions of the orbits, paranasal sinuses, and mastoids appear normal. Moderate left occipital scalp swelling without underlying fracture. Cervical spine: No soft tissue abnormality is identified. The alignment is normal. The prevertebral soft tissue is normal in thickness. The bones are moderately osteopenic. Vertebral bodies arenormal in height without evidence of acute fracture. Other than moderate middle atlantoaxial joint osteoarthritis, the craniocervical junction appears normal. There is mild to moderate multilevel degenerative disc disease.The central canal is moderately stenotic at multiple levels due to a combination of degenerative disc and joint disease and congenital shortening of the pedicles. There are varying degrees of moderate tosevere multiple facet osteoarthritis. There are varying degrees of mild to moderate multilevel uncovertebral joint osteoarthritis with the samedegree of neural foraminal stenosis at these levels. Neck CTA findings: The visible aortic arch appears normal. There is a common origin of the innominate and left common carotid arteries from the aortic arch. The innominate artery and both subclavian arteries appear normal. The right common and internal carotid arteries as well as the right carotid bifurcation are patent. The left common and internal carotid arteries as well as the left carotid bifurcation are patent. The cervical vertebral arteries are patent. There is no evidence of arterial injury in theneck. Thoracic spine: No soft tissue abnormality is identified. The alignment is normal. The mineralization of the bones is normal. Vertebral bodies are normal in height without evidence of acutefracture. There is mild multilevel degenerative disc disease. Bridgingsyndesmophytes at multiple levels suggest early diffuse idiopathic skeletalhyperostosis (DISH). The central canal is patent. There are varying degrees of up to moderate facet osteoarthritis with the same degree of neural foraminal stenosis at these levels. Lumbar spine: Multiple small nonobstructing calculi in the kidneys bilaterally. The alignment is normal. A large osseous hemangioma in the L5 occupyingthe entire vertebral body. Vertebral bodies are normal in height without evidence of acute fracture. There is up to moderate multileveldegenerative disc disease. The central canal is patent. There are varying degrees ofup to severe facet osteoarthritis with the same degree of neural foraminal stenosis at these levels. Moderate osteoarthritis of the sacroiliac joints. IMPRESSION: 1. No acute intracranial process. 2. No evidence of acute fracture in the cervical, thoracic, or lumbar spine. 3. No evidence of large arterial injury in the neck. 4. Multiple small nonobstructing calculi in the kidneys bilaterally. 5. Multiple chronic findings as detailed in the report. > Interpreting Provider: Leighton Rodriguez MD on 01/28/2025 10:03 PM us Rinku Baird MD CT ORDERABLES Final Result * CT ANGIO NECK - Neck Trauma, inj suspected, blunt or penetrating (01/28/2025 9:21 PM CDT) Anatomical Region Laterality Modality Head Computed Tomogra phy 01/28/2025 9:42 PM CDT Impressions 01/28/2025 10:03 PM CDT IMPRESSION: 1. No acute intracranial process. 2. No evidence of acute fracture in the cervical, thoracic, or lumbar spine. 3. No evidence of large arterial injury in the neck. 4. Multiple small nonobstructing calculi in the kidneys bilaterally. 5. Multiple chronic findings as detailed in the report. > Interpreting Provider: Leighton Rodriguez MD on 01/28/2025 10:03 PM Narrative 01/28/2025 10:03 PM CDT PROCEDURE: CT HEAD WO CONTRAST, CT LUMBAR SPINE WO CONTRAST, CT THORACIC SPINE WO CONTRAST, CT ANGIO NECK, CT CERVICAL SPINE WO CONTRAST, DATE/TIME OF EXAM: 01/28/2025 9:22 PM, LOCATION [facility] INDICATION: T14.90XA: Trauma ADDITIONAL CLINICAL INFORMATION: Ordering Provider Reason For Exam: Technologist Note: Additional: EXAMINATION: 1. Computed tomography (CT) of the head without contrast 2. CT of the cervical spine without contrast 3. CT of the thoracic spine without contrast 4. CT of the lumbar spine without contrast 5. CT angiography of the neck with contrast TECHNIQUE: CT of the head and cervical spine were performed without contrast according to standard protocol. Reformatted axial, sagittal, and coronal images of the thoracic and lumbar spine were obtained by the technologist from a concurrently performed body CT and sent to the workstation for review. CT angiography of the neck was obtained after the uneventful administration of mL Isovue-370 intravenous contrast. Three dimensional postprocessing was performed by the technologist and sent to the workstation for review. COMPARISON: No prior study is available for comparison at the time of this dictation. FINDINGS: Head: No acute intracranial hemorrhage or intra- or extra-axial fluid collections are identified. The ventricles are of normal size, shape, and morphology. The basal cisterns are patent. No mass effect or midline shift is seen. The jacome-white matter differentiation is normal. The visualized portions of the orbits, paranasal sinuses, and mastoids appear normal. Moderate left occipital scalp swelling without underlying fracture. Cervical spine: No soft tissue abnormality is identified. The alignment is normal. The prevertebral soft tissue is normal in thickness. The bones are moderately osteopenic. Vertebral bodies are normal in height without evidence of acute fracture. Other than moderate middle atlantoaxial joint osteoarthritis, the craniocervical junction appears normal. There is mild to moderate multilevel degenerative disc disease. The central canal is moderately stenotic at multiple levels due to a combination of degenerative disc and joint disease and congenital shortening of the pedicles. There are varying degrees of moderate to severe multiple facet osteoarthritis. There are varying degrees of mild to moderate multilevel uncovertebral joint osteoarthritis with the same degree of neural foraminal stenosis at these levels. Neck CTA findings: The visible aortic arch appears normal. There is a common origin of the innominate and left common carotid arteries from the aortic arch. The innominate artery and both subclavian arteries appear normal. The right common and internal carotid arteries as well as the right carotid bifurcation are patent. The left common and internal carotid arteries as well as the left carotid bifurcation are patent. The cervical vertebral arteries are patent. There is no evidence of arterial injury in the neck. Thoracic spine: No soft tissue abnormality is identified. The alignment is normal. The mineralization of the bones is normal. Vertebral bodies are normal in height without evidence of acute fracture. There is mild multilevel degenerative disc disease. Bridging syndesmophytes at multiple levels suggest early diffuse idiopathic skeletal hyperostosis (DISH). The central canal is patent. There are varying degrees of up to moderate facet osteoarthritis with the same degree of neural foraminal stenosis at these levels. Lumbar spine: Multiple small nonobstructing calculi in the kidneys bilaterally. The alignment is normal. A large osseous hemangioma in the L5 occupying the entire vertebral body. Vertebral bodies are normal in height without evidence of acute fracture. There is up to moderate multilevel degenerative disc disease. The central canal is patent. There are varying degrees of up to severe facet osteoarthritis with the same degree of neural foraminal stenosis at these levels. Moderate osteoarthritis of the sacroiliac joints. Procedure Note Leighton Rodriguez MD - 01/28/2025 PROCEDURE: CT HEAD WO CONTRAST, CT LUMBAR SPINE WO CONTRAST, CTTHORACIC SPINE WO CONTRAST, CT ANGIO NECK, CT CERVICAL SPINE WO CONTRAST,DATE/TIME OF EXAM: 01/28/2025 9:22 PM, LOCATION [facility] INDICATION: T14.90XA: Trauma ADDITIONAL CLINICAL INFORMATION: Ordering Provider Reason For Exam: Technologist Note: Additional: EXAMINATION: 1. Computed tomography (CT) of the head without contrast 2. CT of the cervical spine without contrast 3. CT of the thoracic spine without contrast 4. CT of the lumbar spine without contrast 5. CT angiography of the neck with contrast TECHNIQUE: CT of the head and cervical spine were performed without contrast according to standard protocol. Reformatted axial, sagittal,and coronal images of the thoracic and lumbar spine were obtained by the technologist from a concurrently performed body CT and sent to the workstation for review. CT angiography of the neck was obtained afterthe uneventful administration of mL Isovue-370 intravenous contrast. Three dimensional postprocessing was performed by the technologist and sent to the workstation for review. COMPARISON: No prior study is available for comparison at the time ofthis dictation. FINDINGS: Head: No acute intracranial hemorrhage or intra- or extra-axial fluidcollections are identified. The ventricles are of normal size, shape, andmorphology. The basal cisterns are patent. No mass effect or midline shift is seen.The jacome-white matter differentiation is normal. The visualized portions of the orbits, paranasal sinuses, and mastoids appear normal. Moderate left occipital scalp swelling without underlying fracture. Cervical spine: No soft tissue abnormality is identified. The alignment is normal. The prevertebral soft tissue is normal in thickness. The bones are moderately osteopenic. Vertebral bodies arenormal in height without evidence of acute fracture. Other than moderate middle atlantoaxial joint osteoarthritis, the craniocervical junction appears normal. There is mild to moderate multilevel degenerative disc disease.The central canal is moderately stenotic at multiple levels due to a combination of degenerative disc and joint disease and congenital shortening of the pedicles. There are varying degrees of moderate tosevere multiple facet osteoarthritis. There are varying degrees of mild to moderate multilevel uncovertebral joint osteoarthritis with the samedegree of neural foraminal stenosis at these levels. Neck CTA findings: The visible aortic arch appears normal. There is a common origin of the innominate and left common carotid arteries from the aortic arch. The innominate artery and both subclavian arteries appear normal. The right common and internal carotid arteries as well as the right carotid bifurcation are patent. The left common and internal carotid arteries as well as the left carotid bifurcation are patent. The cervical vertebral arteries are patent. There is no evidence of arterial injury in theneck. Thoracic spine: No soft tissue abnormality is identified. The alignment is normal. The mineralization of the bones is normal. Vertebral bodies are normal in height without evidence of acutefracture. There is mild multilevel degenerative disc disease. Bridgingsyndesmophytes at multiple levels suggest early diffuse idiopathic skeletalhyperostosis (DISH). The central canal is patent. There are varying degrees of up to moderate facet osteoarthritis with the same degree of neural foraminal stenosis at these levels. Lumbar spine: Multiple small nonobstructing calculi in the kidneys bilaterally. The alignment is normal. A large osseous hemangioma in the L5 occupyingthe entire vertebral body. Vertebral bodies are normal in height without evidence of acute fracture. There is up to moderate multileveldegenerative disc disease. The central canal is patent. There are varying degrees ofup to severe facet osteoarthritis with the same degree of neural foraminal stenosis at these levels. Moderate osteoarthritis of the sacroiliac joints. IMPRESSION: 1. No acute intracranial process. 2. No evidence of acute fracture in the cervical, thoracic, or lumbar spine. 3. No evidence of large arterial injury in the neck. 4. Multiple small nonobstructing calculi in the kidneys bilaterally. 5. Multiple chronic findings as detailed in the report. > Interpreting Provider: Leighton Rodriguez MD on 01/28/2025 10:03 PM Rinku Baird MD CT ORDERABLES Final Result * CT HEAD WO CONTRAST - Head Trauma, CSF leak, mental status changes (01/28/2025 9:21 PM CDT) Anatomical Region Laterality Modality Head Computed Tomogra phy 01/28/2025 9:42 PM CDT Impressions 01/28/2025 10:03 PM CDT IMPRESSION: 1. No acute intracranial process. 2. No evidence of acute fracture in the cervical, thoracic, or lumbar spine. 3. No evidence of large arterial injury in the neck. 4. Multiple small nonobstructing calculi in the kidneys bilaterally. 5. Multiple chronic findings as detailed in the report. > Interpreting Provider: Leighton Rodriguez MD on 01/28/2025 10:03 PM Narrative 01/28/2025 10:03 PM CDT PROCEDURE: CT HEAD WO CONTRAST, CT LUMBAR SPINE WO CONTRAST, CT THORACIC SPINE WO CONTRAST, CT ANGIO NECK, CT CERVICAL SPINE WO CONTRAST, DATE/TIME OF EXAM: 01/28/2025 9:22 PM, LOCATION [facility] INDICATION: T14.90XA: Trauma ADDITIONAL CLINICAL INFORMATION: Ordering Provider Reason For Exam: Technologist Note: Additional: EXAMINATION: 1. Computed tomography (CT) of the head without contrast 2. CT of the cervical spine without contrast 3. CT of the thoracic spine without contrast 4. CT of the lumbar spine without contrast 5. CT angiography of the neck with contrast TECHNIQUE: CT of the head and cervical spine were performed without contrast according to standard protocol. Reformatted axial, sagittal, and coronal images of the thoracic and lumbar spine were obtained by the technologist from a concurrently performed body CT and sent to the workstation for review. CT angiography of the neck was obtained after the uneventful administration of mL Isovue-370 intravenous contrast. Three dimensional postprocessing was performed by the technologist and sent to the workstation for review. COMPARISON: No prior study is available for comparison at the time of this dictation. FINDINGS: Head: No acute intracranial hemorrhage or intra- or extra-axial fluid collections are identified. The ventricles are of normal size, shape, and morphology. The basal cisterns are patent. No mass effect or midline shift is seen. The jacome-white matter differentiation is normal. The visualized portions of the orbits, paranasal sinuses, and mastoids appear normal. Moderate left occipital scalp swelling without underlying fracture. Cervical spine: No soft tissue abnormality is identified. The alignment is normal. The prevertebral soft tissue is normal in thickness. The bones are moderately osteopenic. Vertebral bodies are normal in height without evidence of acute fracture. Other than moderate middle atlantoaxial joint osteoarthritis, the craniocervical junction appears normal. There is mild to moderate multilevel degenerative disc disease. The central canal is moderately stenotic at multiple levels due to a combination of degenerative disc and joint disease and congenital shortening of the pedicles. There are varying degrees of moderate to severe multiple facet osteoarthritis. There are varying degrees of mild to moderate multilevel uncovertebral joint osteoarthritis with the same degree of neural foraminal stenosis at these levels. Neck CTA findings: The visible aortic arch appears normal. There is a common origin of the innominate and left common carotid arteries from the aortic arch. The innominate artery and both subclavian arteries appear normal. The right common and internal carotid arteries as well as the right carotid bifurcation are patent. The left common and internal carotid arteries as well as the left carotid bifurcation are patent. The cervical vertebral arteries are patent. There is no evidence of arterial injury in the neck. Thoracic spine: No soft tissue abnormality is identified. The alignment is normal. The mineralization of the bones is normal. Vertebral bodies are normal in height without evidence of acute fracture. There is mild multilevel degenerative disc disease. Bridging syndesmophytes at multiple levels suggest early diffuse idiopathic skeletal hyperostosis (DISH). The central canal is patent. There are varying degrees of up to moderate facet osteoarthritis with the same degree of neural foraminal stenosis at these levels. Lumbar spine: Multiple small nonobstructing calculi in the kidneys bilaterally. The alignment is normal. A large osseous hemangioma in the L5 occupying the entire vertebral body. Vertebral bodies are normal in height without evidence of acute fracture. There is up to moderate multilevel degenerative disc disease. The central canal is patent. There are varying degrees of up to severe facet osteoarthritis with the same degree of neural foraminal stenosis at these levels. Moderate osteoarthritis of the sacroiliac joints. Procedure Note Leighton Rodriguez MD - 01/28/2025 PROCEDURE: CT HEAD WO CONTRAST, CT LUMBAR SPINE WO CONTRAST, CTTHORACIC SPINE WO CONTRAST, CT ANGIO NECK, CT CERVICAL SPINE WO CONTRAST,DATE/TIME OF EXAM: 01/28/2025 9:22 PM, LOCATION [facility] INDICATION: T14.90XA: Trauma ADDITIONAL CLINICAL INFORMATION: Ordering Provider Reason For Exam: Technologist Note: Additional: EXAMINATION: 1. Computed tomography (CT) of the head without contrast 2. CT of the cervical spine without contrast 3. CT of the thoracic spine without contrast 4. CT of the lumbar spine without contrast 5. CT angiography of the neck with contrast TECHNIQUE: CT of the head and cervical spine were performed without contrast according to standard protocol. Reformatted axial, sagittal,and coronal images of the thoracic and lumbar spine were obtained by the technologist from a concurrently performed body CT and sent to the workstation for review. CT angiography of the neck was obtained afterthe uneventful administration of mL Isovue-370 intravenous contrast. Three dimensional postprocessing was performed by the technologist and sent to the workstation for review. COMPARISON: No prior study is available for comparison at the time ofthis dictation. FINDINGS: Head: No acute intracranial hemorrhage or intra- or extra-axial fluidcollections are identified. The ventricles are of normal size, shape, andmorphology. The basal cisterns are patent. No mass effect or midline shift is seen.The jacome-white matter differentiation is normal. The visualized portions of the orbits, paranasal sinuses, and mastoids appear normal. Moderate left occipital scalp swelling without underlying fracture. Cervical spine: No soft tissue abnormality is identified. The alignment is normal. The prevertebral soft tissue is normal in thickness. The bones are moderately osteopenic. Vertebral bodies arenormal in height without evidence of acute fracture. Other than moderate middle atlantoaxial joint osteoarthritis, the craniocervical junction appears normal. There is mild to moderate multilevel degenerative disc disease.The central canal is moderately stenotic at multiple levels due to a combination of degenerative disc and joint disease and congenital shortening of the pedicles. There are varying degrees of moderate tosevere multiple facet osteoarthritis. There are varying degrees of mild to moderate multilevel uncovertebral joint osteoarthritis with the samedegree of neural foraminal stenosis at these levels. Neck CTA findings: The visible aortic arch appears normal. There is a common origin of the innominate and left common carotid arteries from the aortic arch. The innominate artery and both subclavian arteries appear normal. The right common and internal carotid arteries as well as the right carotid bifurcation are patent. The left common and internal carotid arteries as well as the left carotid bifurcation are patent. The cervical vertebral arteries are patent. There is no evidence of arterial injury in theneck. Thoracic spine: No soft tissue abnormality is identified. The alignment is normal. The mineralization of the bones is normal. Vertebral bodies are normal in height without evidence of acutefracture. There is mild multilevel degenerative disc disease. Bridgingsyndesmophytes at multiple levels suggest early diffuse idiopathic skeletalhyperostosis (DISH). The central canal is patent. There are varying degrees of up to moderate facet osteoarthritis with the same degree of neural foraminal stenosis at these levels. Lumbar spine: Multiple small nonobstructing calculi in the kidneys bilaterally. The alignment is normal. A large osseous hemangioma in the L5 occupyingthe entire vertebral body. Vertebral bodies are normal in height without evidence of acute fracture. There is up to moderate multileveldegenerative disc disease. The central canal is patent. There are varying degrees ofup to severe facet osteoarthritis with the same degree of neural foraminal stenosis at these levels. Moderate osteoarthritis of the sacroiliac joints. IMPRESSION: 1. No acute intracranial process. 2. No evidence of acute fracture in the cervical, thoracic, or lumbar spine. 3. No evidence of large arterial injury in the neck. 4. Multiple small nonobstructing calculi in the kidneys bilaterally. 5. Multiple chronic findings as detailed in the report. > Interpreting Provider: Leighton Rodriguez MD on 01/28/2025 10:03 PM [address] Baird MD CT ORDERABLES Final Result * XR PELVIS 1 OR 2VW (01/28/2025 9:11 PM CDT) Anatomical Region Laterality Modality Pelvis Digital Radiogra phy 01/28/2025 11:4 9 PM CDT Impressions 01/29/2025 2:37 AM CDT IMPRESSION: No acute fracture identified. Report was dictated by Luis Angel Flood MD, (V[facility] resident). > Dictated by Hoop Maker Machine I, Rigo Mcfarlane MD have personally reviewed and interpreted this examination/study. > Interpreting Provider: Rigo Mcfarlane MD on 01/29/2025 2:37 AM Narrative 01/29/2025 2:37 AM CDT PROCEDURE: XR PELVIS 1 OR 2VW, DATE/TIME OF EXAM: 01/28/2025 9:11 PM, LOCATION [facility] INDICATION: T14.90XA: Trauma COMPARISON: None. FINDINGS: No acute fracture is identified. The femoral heads appear well-seated within their respective acetabula. The pubic symphysis is intact. Bone density and texture are normal. Mild degenerative changes of the sacroiliac joints. There is mild to moderate degenerative changes of the hips with subchondral sclerosis and cystic changes. The lumbosacral spine has been moderate degenerative changes. Procedure Note Rigo Mcfarlane MD - 01/29/2025 PROCEDURE: XR PELVIS 1 OR 2VW, DATE/TIME OF EXAM: 01/28/2025 9:11 PM, LOCATION [facility] INDICATION: T14.90XA: Trauma COMPARISON: None. FINDINGS: No acute fracture is identified. The femoral heads appear well-seated within their respective acetabula. The pubic symphysis is intact. Bone density and texture are normal. Mild degenerative changes of the sacroiliac joints. There is mild to moderate degenerative changes of the hips with subchondral sclerosis and cystic changes. The lumbosacral spine has been moderate degenerative changes. IMPRESSION: No acute fracture identified. Report was dictated by Luis Angel Flood MD, ([facility] resident). > Dictated by Hoop Maker Machine I, Rigo Mcfarlane MD have personally reviewed and interpreted this examination/study. > Interpreting Provider: Rigo Mcfarlane MD on 01/29/2025 2:37 AM Rinku Baird MD DIAGNOSTIC IMAGING ORDERABLES Final Result * XR CHEST 1VW PORTABLE (01/28/2025 9:11 PM CDT) Anatomical Region Laterality Modality Chest Digital Radiogra phy 01/28/2025 11:5 9 PM CDT Narrative 01/29/2025 2:36 AM CDT PROCEDURE: XR CHEST 1VW PORTABLE, DATE/TIME OF EXAM: 01/28/2025 9:11 PM, LOCATION [facility] INDICATION: T14.90XA: Trauma COMPARISON: None. FINDINGS/IMPRESSION: There is no focal consolidation, pleural effusion, or pneumothorax. The cardiomediastinal silhouette is normal. Degenerative changes are noted in the thoracic spine and shoulders. Report dictated by Luis Angel Flood MD, (Integrated [facility] resident). > Dictated by Hoop Maker Machine I, Rigo Mcfarlane MD have personally reviewed and interpreted this examination/study. > Interpreting Provider: Rigo Mcfarlane MD on 01/29/2025 2:36 AM Procedure Note Rigo Mcfarlane MD - 01/29/2025 PROCEDURE: XR CHEST 1VW PORTABLE, DATE/TIME OF EXAM: 01/28/2025 9:11PM, LOCATION [facility] INDICATION: T14.90XA: Trauma COMPARISON: None. FINDINGS/IMPRESSION: There is no focal consolidation, pleural effusion, or pneumothorax. The cardiomediastinal silhouette is normal. Degenerative changes are notedin the thoracic spine and shoulders. Report dictated by Luis Angel Flood MD, (Integrated [facility] resident). > Dictated by Hoop Maker Machine I, Rigo Mcfarlane MD have personally reviewed and interpreted this examination/study. > Interpreting Provider: Rigo Mcfarlane MD on 01/29/2025 2:36 AM Rinku Baird MD DIAGNOSTIC IMAGING ORDERABLES Final Result * HCG BETA BLOOD QUANTITATIVE (01/28/2025 8:53 PM CDT) [facility] Beta-hCG Total Quantitative <3 mIU/mL 01/28/2025 9:53 PM CDT [facility] Comment: HCG Numeric Result Interpretation: Non- Females: < 5 mIU/mL Post-Menopausal Females: < 7 mIU/mL This assay is cleared for use in the early detection of only. It is not approved for any other uses such as tumor marker screening, tumor marker monitoring, etc. and should not be used for any other purposes. Blood BLOOD SPECIMEN / Unknown Venipuncture / Unknown 01/28/2025 8:53 PM CDT 01/28/2025 9:03 PM CDT Rinku Baird MD LAB - CHEMISTRY ORDERABLES Fin al Result [facility] [address] [place] [address], [facility] [phone] * LIPASE BLOOD (01/28/2025 8:53 PM CDT) [facility] Lipase 76 8 - 78 U/L 01/28/2025 9:38 PM CDT [facility] Blood BLOOD SPECIMEN / Unknown Venipuncture / Unknown 01/28/2025 8:53 PM CDT 01/28/2025 9:03 PM CDT Narrative [facility] - 01/28/2025 9:38 PM CDT Lipase results from the [employer] Alinity analyzer may not be comparable with other methodologies. Rinku Baird MD LAB - CHEMISTRY ORDERABLES Rao al Result Performing Organization Address [facility]/ZIP Co de Phone Number [id number] [place] [address], [place] [phone] * ALCOHOL ETHYL BLOOD (01/28/2025 8:53 PM CDT) Ethanol (mg/dL) <10 <10 mg/dL 9:38 PM CDT [facility] Ethanol Calculated (g/dL) <0.010 <=0.010 g/dL 01/28/2025 9:38 PM CDT [facility] Blood BLOOD SPECIMEN / Unknown Venipuncture / Unknown 01/28/2025 8:53 PM CDT 01/28/2025 9:03 PM CDT Narrative [facility] - 01/28/2025 9:38 PM CDT Ethanol Interp <10: None Detected. Depression of SYSTEMS SOFTWARE MANAGER: >100 mg/dl Potentially Critical: >250 mg/dl Potentially Fatal >400 mg/dl Ethanol in the patient's blood will contribute to the osmolar gap. Ethanol's contribution to the osmolar gap can be estimated by dividing the concentration of ethanol in mg/dL by 4.6. This test is for clinical use only and does not equal a N[place] for legal purposes. Rinku Baird MD LAB - CHEMISTRY ORDERABLES Fin al Result Performing Organization Address City/[facility]/ZIP Co de Phone Number [address] [address], [place] [phone] from Last 3 Months Insurance SELF PAY NO INSURANCE Member Subscriber Plan / Payer (Ef fective for All Dates) Name:Neeru Rizo Member ID:Not on file Relation to Subscriber:Not on file Name:NEERU RIZO Subscriber ID:Not on file (Home) Address: [address] [place] [address] Payer ID:Not on file Group ID:Not on file Type:Self Pay Address: [facility] [employer] [facility] Advance Directives * Full Code (Latest Code Status on File) Date Activated Date Inactivated Comments 02/07/2025 1:55 AM 02/11/2025 1:34 PM * Full Code Date Activated Date Inactivated Comments 02/04/2025 7:32 PM 02/07/2025 1:55 AM Care Teams Dubbing Machine Operator Relationship Specialty Start Date End Date Richie Fam DO PCP - General 12/16/22 Richie Fam DO 05/30/22
--- OUTSIDE RECORDS SUMMARY | 2025-03-09 17:39 | XMS_ITS | Clinical Summary ---
Author Organization [facility] [address] [facility] Address [address] [place] [address] Care Team Providers Care Manager Event Name Role Phone Richie Fam DO Primary Care Provider [phone]- [phone] Allergies No known active allergies Medications sertraline [...] 36.7 C (98.1 F) 07/21/2014 10:57 AM BARIATRIC PROGRAM COORDINATOR Respiratory Rate - - Oxygen Saturation 96% 02/17/2019 9:47 AM CDT Inhaled Oxygen Concentration - - Weight 78.5 kg (173 lb) 04/19/2020 1:11 PM BARIATRIC PROGRAM COORDINATOR Height 160 cm (5' 3) 04/19/2020 1:11 PM BARIATRIC PROGRAM COORDINATOR Body Mass Index 30.65 04/19/2020 1:11 PM BARIATRIC PROGRAM COORDINATOR Plan of Treatment Not on file Insurance [facility] CLAIMS WE[employer] CLAIMS Care Teams Manager Event Relationship Specialty Start Date End Date Richie Fam DO PCP - General Internal Medicine 04/07/17
== END 2025-03-09 15:47 | disposition home or self-care (01) ==
PROVIDERS: PCP Internal Medicine; Visit Provider Clinical Nurse Specialist
DX: R10.9 Unspecified abdominal pain (principal); Z90.81 Acquired absence of spleen; R42 Dizziness and giddiness; S32.049A Unspecified fracture of fourth lumbar vertebra, initial encounter for closed fracture; X58.XXXA Exposure to other specified factors, initial encounter
CPT/HCPCS: 70450; 74177; Q9967